=== PATIENT | male | born 1995 | race Caucasian/White ===

== ENCOUNTER → 2016-12-02 | Outpatient (CLI) | payer OTHER, SELFPAY ==
[2016-12-02 18:52] LABS: ALBUMIN 4.3 GM/DL (3.2-5.2); ALBUMIN/GLOBULIN RATIO 1.19 (1.00-1.93); ALKALINE PHOSPHATASE 71 U/L (45-117); ALT/SGPT 24 U/L (12-78); ANION GAP 9 MEQ/L (8-16); AST/SGOT 21 U/L (15-37); BILIRUBIN,TOTAL 0.5 MG/DL (0.2-1.0); BLOOD UREA NITROGEN 14 MG/DL (7-18); CALCIUM LEVEL 9.1 MG/DL (8.5-10.1); CARBON DIOXIDE LEVEL 28 MEQ/L (21-32); CHLORIDE LEVEL 105 MEQ/L (98-107); CREATININE FOR GFR 0.87 MG/DL (0.70-1.30); GLOMERULAR FILTRATION RATE > 60.0 (>60); GLUCOSE, FASTING 81 MG/DL (70-105); POTASSIUM SERUM 4.6 MEQ/L (3.5-5.1); SODIUM LEVEL 142 MEQ/L (136-145); TOTAL PROTEIN 7.9 GM/DL (6.4-8.2)
[2016-12-02 18:53] LABS: BASO % 0.4 % (0.0-1.0); EOS # 0.3 K/mm3 (0.0-0.50); EOS % 4.1 % (0.0-3.0); LARGE UNSTAINED CELL # 0.2 K/mm3 (0.0-0.4); LARGE UNSTAINED CELL % 2.3 % (0.0-4.0); LYMPH # 2.6 K/mm3 (1.5-6.5); LYMPH % 31.4 % (24.0-44.0); MEAN CORPUSCULAR HGB CONC 35.3 g/dl (32.0-36.5); MEAN CORPUSCULAR VOLUME 82.2 fl (80.0-96.0); MONO # 0.5 K/mm3 (0.0-0.8); MONO % 5.7 % (0.0-5.0); NEUTROPHILS # 4.6 K/mm3 (1.8-7.7); NEUTROPHILS % 56.1 % (36.0-66.0); PLATELET COUNT, AUTOMATED 282 k/mm3 (150-450); RED CELL DISTRIBUTION WIDTH 13.5 % (11.5-14.5); WHITE BLOOD COUNT 8.2 K/mm3 (4.0-10.0)
[2016-12-03 14:16] LABS: HIV SCRN NEGATIVE (NEGATIVE); HIV SCRN1 NEGATIVE (NEGATIVE)
[2016-12-03 14:18] LABS: CONTROL LINE INT CTR LINE PRESENT
== END | disposition home or self-care (01) ==
LOC: M LAB 15:39
PROVIDERS: ATTEND Family Medicine
DX: F11.20 Opioid dependence, uncomplicated (principal)

== ENCOUNTER 2017-07-25 12:24 | Inpatient (IN) | payer OTHER, SELFPAY ==
[~2017-07-25] VITALS: Ht 182.9 cm; Wt 130.0 kg
[2017-07-25] MEDS ORDERED: ONDANSETRON 4MG/2ML VIAL (J2405) IV ONE (13:00)
[2017-07-25] MEDS ORDERED: NS 1,000 ML IV ONE (13:00)
[2017-07-25 13:08] LABS: BASO # 0.1 K/mm3 (0.0-0.2); BASO % 1.2 % (0.0-1.0); EOS # 0.4 K/mm3 (0.0-0.50); EOS % 3.8 % (0.0-3.0); LARGE UNSTAINED CELL # 0.4 K/mm3 (0.0-0.4); LARGE UNSTAINED CELL % 3.8 % (0.0-4.0); LYMPH # 4.3 K/mm3 (1.5-6.5); LYMPH % 34.5 % (24.0-44.0); MEAN CORPUSCULAR HEMOGLOBIN 30.2 pg (27.0-33.0); MEAN CORPUSCULAR HGB CONC 35.3 g/dl (32.0-36.5); MEAN CORPUSCULAR VOLUME 85.5 fl (80.0-96.0); MONO % 9.1 % (0.0-5.0); NEUTROPHILS # 5.4 K/mm3 (1.8-7.7); NEUTROPHILS % 47.7 % (36.0-66.0); PLATELET COUNT, AUTOMATED 229 k/mm3 (150-450); RED CELL DISTRIBUTION WIDTH 13.2 % (11.5-14.5); WHITE BLOOD COUNT 11.3 K/mm3 (4.0-10.0)
[2017-07-25] MEDS ORDERED: METH10CO PO (13:09)
[2017-07-25 13:13] LABS: INR 1.12
[2017-07-25 13:30] LABS: CONTROL LINE MONO INT CTR LINE PRESENT
[2017-07-25] MEDS ORDERED: NS 1,000 ML IV SCH ×4 (13:30→20:32)
[2017-07-25 13:38] LABS: ALBUMIN 3.1 GM/DL (3.2-5.2); ALBUMIN/GLOBULIN RATIO 0.91 (1.00-1.93); ALKALINE PHOSPHATASE 235 U/L (45-117); ALT/SGPT 1181 U/L (12-78); AMYLASE 20 U/L (25-115); ANION GAP 11 MEQ/L (8-16); AST/SGOT 906 U/L (15-37); BILIRUBIN,TOTAL 2.8 MG/DL (0.2-1.0); BLOOD UREA NITROGEN 23 MG/DL (7-18); CALCIUM LEVEL 8.3 MG/DL (8.5-10.1); CARBON DIOXIDE LEVEL 25 MEQ/L (21-32); CHLORIDE LEVEL 106 MEQ/L (98-107); CREATININE FOR GFR 0.94 MG/DL (0.70-1.30); GLOMERULAR FILTRATION RATE > 60.0 (>60); GLUCOSE, FASTING 126 MG/DL (70-105); POTASSIUM SERUM 4.1 MEQ/L (3.5-5.1); SODIUM LEVEL 142 MEQ/L (136-145); TOTAL PROTEIN 6.5 GM/DL (6.4-8.2)
[2017-07-25] MEDS ORDERED: GABA-282 PO (15:08)
[2017-07-25] MEDS ORDERED: IBUP1TAB6 PO (15:08)
[2017-07-25] MEDS ORDERED: RANI1TAB6 PO (15:08)
[2017-07-25] MEDS ORDERED: METH40TA PO (15:08)
[2017-07-25] MEDS ORDERED: SODIUM CHLORIDE 0.9% 1000 ML IV ONE (15:15)
[2017-07-25] MEDS ORDERED: ONDANSETRON 4MG/2ML VIAL (J2405) IV PRN (15:15)
[2017-07-25] MEDS ORDERED: ONDANSETRON 4 MG TAB (S0181) PO PRN (15:15)
[2017-07-25] MEDS ORDERED: PANTOPRAZOLE 40MG INJ (PROTONIX) (C9113) IV ONE (15:45)
--- NOTE | 2017-07-25 16:21 | REP ---
CT Head without contrast HISTORY: Fall COMPARISON: None There is no intraparenchymal hemorrhage, acute infarct, mass or midline shift. The ventricular system is normal in appearance. There is no extra cerebral collection. There is no fracture. The visualized sinuses are clear. IMPRESSION: There is no intracranial lesion. Signed by Will Mott MD 07/25/2017 04:13 P
[2017-07-25 16:43] LABS: METHADONE URINE POSITIVE (NEGATIVE)
--- NOTE | 2017-07-25 18:18 | HPEPDOC ---
Medical History and Physical Date of Admission Jul 25, 2017 at 15:08 History and Physical HISTORY AND PHYSICAL Date of admission: 07/25/2017 PCP: None Chief complaint: Bloody bowel movement HPI: 22-year-old male with history of IV heroin use, currently sober for 2 years and attending methadone clinic, history of likely hepatitis C, who presented to the emergency department with a bloody bowel movement. He states that approximately 3 days ago, he began having diffuse muscle cramps, lots of fatigue, and headaches. He also endorses lots of nausea, but no vomiting. He states that earlier today, he thought he was going to vomit, but when he got to the bathroom, he had an intense urge to have a bowel movement. At that point, he appears to have passed out, and fell on the floor. He states that he definitely lost consciousness, but he is unclear if he hit his head or not. His sister states that she heard him fall, and when she went into the bathroom, he was on the floor, and the entire toilet was full of blood clots. The patient denies any prior episodes similar to this, but he does state that approximately one month ago, he saw a little bit of streaks of blood in his stool. He has never had any EGD or colonoscopy in the past. He denies any Tylenol use, but does report fairly regular ibuprofen use for several years now. He denies any alcohol ingestion approximately 6 years. He also denies any recent tattoos. Past medical history: History of IV heroin use, currently sober for 2 years and attending methadone clinic, history of likely hepatitis C, history of mononucleosis approximately 3-4 years ago Past surgical history: None Family history: Diabetes mellitus, end-stage renal disease, hypertension, hepatitis C Social history: The patient is not currently working or in school. He smokes approximately one pack of cigarettes a day, and states that he has not had any alcohol since he was approximately 16 years old. He endorses a history of IV heroin use, but states he has been clean for approximately 2 years and is currently attending a methadone clinic. Allergies: No known drug allergies Review of systems: General: Positive for subjective fever and chills Eyes: Negative for vision changes and ocular discharge ENT: Positive for sore throat, negative for nose bleed Cardiovascular: Negative for chest pain and palpitations Respiratory: Negative for cough, positive for shortness of breath and wheezing GI: Positive for nausea and constipation, negative for vomiting and diarrhea Musculoskeletal: Positive for lower back pain Skin: Positive for chronic rash on his chest Neuro: Positive for headache and dizziness, as well as tingling of his bilateral hands and feet Psych: Negative for depression and suicidal ideation Endocrine: Positive for polyuria : Negative for dysuria Heme: Positive for bloody BM with clots, but no other bleeding Home meds: See below Physical exam: Vital signs: Vital Sign - Last 24 Hours 07/25/17 07/25/17 07/25/17 07/25/17 12:32 12:39 12:53 12:54 Temp 96.4 Pulse 130 133 119 Resp 17 B/P (MAP) 118/67 (84) 101/62 (75) Pulse Ox 96 97 96 O2 Delivery Room Air 07/25/17 07/25/17 07/25/17 07/25/17 13:00 13:03 13:09 13:11 Temp 96.4 Pulse 130 118 Resp 17 B/P (MAP) 101/62 (75) 118/67 (84) Pulse Ox 96 96 O2 Delivery Room Air 07/25/17 07/25/17 07/25/17 07/25/17 13:15 13:24 13:30 13:39 Pulse 110 104 B/P (MAP) 92/56 (68) 92/52 (65) Pulse Ox 95 97 07/25/17 07/25/17 07/25/17 07/25/17 13:45 13:51 13:53 13:54 Pulse 134 B/P (MAP) 109/71 (84) 112/70 (84) 101/58 (72) Pulse Ox 99 07/25/17 07/25/17 07/25/17 07/25/17 14:00 14:09 14:24 14:26 Pulse 100 105 B/P (MAP) 111/72 (85) 131/74 (93) Pulse Ox 100 100 07/25/17 07/25/17 07/25/17 07/25/17 14:30 14:39 14:45 14:54 Pulse 105 B/P (MAP) 123/74 (90) 132/76 (94) Pulse Ox 99 100 07/25/17 07/25/17 07/25/17 07/25/17 15:00 15:09 15:24 15:38 B/P (MAP) 132/75 (94) 126/73 (90) Pulse Ox 100 100 07/25/17 07/25/17 07/25/17 07/25/17 15:39 15:54 16:08 16:09 Pulse 120 134 B/P (MAP) 109/59 (76) Pulse Ox 98 99 97 07/25/17 07/25/17 07/25/17 07/25/17 16:23 16:24 16:39 16:53 Pulse 122 124 B/P (MAP) 114/63 (80) 108/65 (79) Pulse Ox 96 96 07/25/17 07/25/17 07/25/17 07/25/17 16:54 17:08 17:09 17:24 Pulse 129 119 123 B/P (MAP) 119/58 (78) Pulse Ox 88 97 99 07/25/17 07/25/17 17:39 17:47 Temp 96.6 Pulse 125 125 Resp 58 B/P (MAP) 126/67 (86) Pulse Ox 97 96 Gen.: awake, alert, no acute distress, pale Eyes: Extraocular movements intact, normal sclera ENT: Moist mucous membranes Cardiovascular: Regular rhythm but mildly tachycardic, no murmurs rubs or gallops Lungs: clear to auscultation bilaterally, no rales, rhonchi, or wheeze Abdomen: Soft, nondistended, tenderness to palpation in the left lower quadrant , decreased BS Musculoskeletal: normal range of motion Extremities: No peripheral edema Neuro: alert and oriented 3, normal speech, no focal deficits Psych: Normal mood with congruent affect Labs and radiology: See below BUN 23 Hemoglobin 13.3 WBC 11.3 Lactate 2.9 Troponin negative Lipase unremarkable Blood cultures pending Abdominal ultrasound: Wet read shows a thickened gallbladder wall but no evidence of stones, final read pending Tylenol and aspirin levels are undetectable T bili 2.8, direct bili 2.0, AST 906, ALT 1181, alkaline phosphatase 235 Coags unremarkable Assessment and plan: 22-year-old male with history of IV heroin use, currently sober for 2 years and attending methadone clinic, history of likely hepatitis C, who presented to the emergency department with a bloody bowel movement. He is admitted with a GI bleed, as well as acute transaminitis. 1. GI bleed: The patient experienced a bloody bowel movement with clots this morning at home, and was grossly guaiac-positive in the emergency department. Etiology is unclear at this point, although the patient does endorse regular ibuprofen use for several years. At this time, we will keep him nothing by mouth with a PPI drip and IV fluids. We have consulted Dr. Whitman for evaluation of possible scopes, and we greatly appreciate his help. We will transfuse as necessary, but hemoglobin at this time is above 13. We will trend serial hemoglobins. 2. Loss of consciousness: This is most likely secondary to the sudden, bloody bowel movement that the patient experienced. He says that he is unclear if he hit his head. We will evaluate with a CT of the head, but at this point he is mentating well. 3. Acute transaminitis: The patient denies any recent alcohol intake, or Tylenol ingestion. He does report that the doctor at the methadone clinic told him that his liver tests were a little elevated, but he did not think he needed to be evaluated for hep C treatment at this time. In November of this year, his hepatitis C antibody was positive, however, hepatitis C RNA was negative. Given his IV drug use, we will check an acute hepatitis panel. We will also follow up the final read of the abdominal ultrasound; the wet read showed only a thickened gallbladder wall but no evidence of stones. We will continue to trend his LFTs. If he does not have much improvement by tomorrow, he may benefit from a GI consultation with Dr. Canales who is available this weekend. We will of course hold any hepatotoxic drugs. At this time, his coags are relatively unremarkable. 4. History of IV heroin use, currently sober for 2 years and attending methadone clinic: We will continue the patient on his home methadone. DVT prophylaxis: SCDs Dispo: admit as an inpatient to the ICU on the service of Dr. Chatman; the patient 's status is very guarded given his acute transaminitis and GI bleed CODE STATUS: Full code Vital Signs Vital Signs Date Time Temp Pulse Resp B/P (MAP) Pulse Ox O2 Delivery O2 Flow Rate FiO2 07/25/17 17:47 96.6 125 58 126/67 (86) 96 07/25/17 13:03 Room Air Laboratory Data Labs 24H Laboratory Tests 2 07/25/17 12:48: White Blood Count 11.3H, Red Blood Count 4.41, Hemoglobin 13.3L, Hematocrit 37.7L, Mean Corpuscular Volume 85.5, Mean Corpuscular Hemoglobin 30.2, Mean Corpuscular Hemoglobin Concent 35.3, Red Cell Distribution Width 13.2, Platelet Count 229, Neutrophils (%) (Auto) 47.7, Lymphocytes (%) (Auto) 34.5, Monocytes ( %) (Auto) 9.1H, Eosinophils (%) (Auto) 3.8H, Basophils (%) (Auto) 1.2H, Neutrophils # (Auto) 5.4, Lymphocytes # (Auto) 4.3, Monocytes # (Auto) 1.0H, Eosinophils # (Auto) 0.4, Basophils # (Auto) 0.1, Large Unclassified Cells % 3.8 , Large Unclassified Cells # 0.4, Prothrombin Time 14.6H, Prothromb Time International Ratio 1.12, Activated Partial Thromboplast Time 31.5, Anion Gap 11 , Glomerular Filtration Rate > 60.0, Lactic Acid Level 2.9*H, Calcium Level 8.3L , Aspartate Amino Transf (AST/SGOT) 906H, Alanine Aminotransferase (ALT/SGPT) 1181H, Alkaline Phosphatase 235H, Total Bilirubin 2.8H, Direct Bilirubin 2.0H, Total Creatine Kinase 31L, Creatine Kinase MB 1.0, Creatine Kinase MB Relative Index 3.22, Troponin I < 0.02, Total Protein 6.5, Albumin 3.1L, Albumin/ Globulin Ratio 0.91L, Amylase Level 20L, Lipase 43L, Salicylates Level < 1.7L, Acetaminophen Level < 2.0L, Monoscreen NEGATIVE 07/25/17 16:06: Urine Appearance CLEAR, Urine Color CHRISTINA, Urine pH 6.0, Urine Specific [place] 1.025, Urine Protein 1+H, Urine Glucose (UA) NEGATIVE, Urine Ketones NEGATIVE, Urine Urobilinogen 4.0H, Urine Bilirubin NEGATIVE, Urine Leukocyte Esterase NEGATIVE, Urine Blood NEGATIVE, Urine Nitrite NEGATIVE, Urine WBC (Auto) 1, Urine RBC (Auto) 5H, Urine Hyaline Casts (Auto) 1, Urine Bacteria (Auto) NEGATIVE, Urine Squamous Epithelial Cells 0, Urine Mucus (Auto) SMALL, Urine Sperm (Auto) , Urine Amphetamines Screen NEGATIVE, Urine Benzodiazepines Screen NEGATIVE, Urine Opiates Screen NEGATIVE, Urine Methadone Screen POSITIVEH, Urine Barbiturates Screen NEGATIVE, Urine Phencyclidine Screen NEGATIVE, Urine Cocaine Metabolite Screen NEGATIVE, Urine Cannabinoids Screen NEGATIVE 07/25/17 17:42: CBC/BMP Laboratory Tests 07/25/17 12:48 Red Blood Count 4.41, Mean Corpuscular Volume 85.5, Mean Corpuscular Hemoglobin 30.2, Mean Corpuscular Hemoglobin Concent 35.3, Red Cell Distribution Width 13.2 , Neutrophils (%) (Auto) 47.7, Lymphocytes (%) (Auto) 34.5, Monocytes (%) (Auto ) 9.1 H, Eosinophils (%) (Auto) 3.8 H, Basophils (%) (Auto) 1.2 H, Neutrophils # (Auto) 5.4, Lymphocytes # (Auto) 4.3, Monocytes # (Auto) 1.0 H, Eosinophils # (Auto) 0.4, Basophils # (Auto) 0.1 Microbiology Microbiology 07/25/17 Blood Culture, Received Pending 07/25/17 Blood Culture, Received Pending 07/25/17 Gastrointestinal Tract Panel (PCR), Received Pending Home Medications Scheduled Gabapentin (Gabapentin) 300 Mg Cap, 300 MG PO TID Methadone HCl (Methadone HCl) 40 Mg Tab, 40 MG PO DAILY PT RECEIVES AT [facility], UNABLE TO VERIFY DOSE THE CENTER IS CLOSED TODAY Scheduled PRN Ibuprofen (Ibuprofen) 600 Mg Tab, 600 MG PO Q8H PRN for HEADACHE Ranitidine HCl (Ranitidine [address]) 150 Mg Tab, 1 TAB PO DAILY PRN for HEARTBURN Allergies Coded Allergies: No Known Allergies (Unverified , 07/17/16) PAPO RIBERA Jul 25, 2017 18:18
[2017-07-25] MEDS: PANTOPRAZOLE SODIUM 40 MG in D5W MINI-BAG PLUS 50 ML IV SCH ×2 (18:23→21:00)
[2017-07-25 20:07] VITALS: BP 92/51
[2017-07-25 21:30] VITALS: BP 75/45
--- NOTE | 2017-07-25 21:41 | CR ---
DATE OF CONSULTATION: 07/25/2017 REASON FOR CONSULTATION: Rectal bleeding. HISTORY OF PRESENT ILLNESS: The patient is a 22-year-old man admitted by the hospitalist service for treatment of a rectal bleed. The patient has a history of intravenous (IV) heroin use, according to his chart, but reports being abstinent for the last two years. He is currently being treated through a methadone clinic. He apparently has had a history of possible hepatitis C. The patient has had some nausea and abdominal pain recently. There is a history that he has been using some nonsteroidal anti-inflammatory in the form of ibuprofen for discomfort. On the morning of 07/25, he felt nauseous but went to the bathroom and had a strong urge to have a bowel movement. He apparently had passed out at home and fell on the floor and his family member who found him identified blood with clots in the toilet. The patient has not had any prior history of rectal bleeding. He denies any history of peptic ulcer disease. He presented to the emergency department where he was found to have a hemoglobin of 13 with a hematocrit of 38. He was admitted to the intensive care unit for monitoring. He has been tachycardiac during much of his stay in the 120 to 130 range. He has had perhaps two more passages of blood and clots which is described as being mckenzie in color and not bright red. His blood pressure has gotten a little soft and a repeat chemistry at 8 p.m. showed a hemoglobin now of nine with a hematocrit of 27, representing a 10-point drop in his hematocrit. I have been requested to evaluate the patient for possible endoscopy. ALLERGIES: The patient has no documented drug allergies. HOME MEDICATIONS. He has been taking gabapentin 300 mg by mouth three times daily and some methadone daily as well. He has been taking some ibuprofen and some as needed [id number] ranitidine for heartburn. PAST SURGICAL HISTORY: The patient has had no surgery. MEDICAL HISTORY: Significant for his prior use of heroin and his current methadone maintenance. He has a history reported as likely hepatitis C. SOCIAL HISTORY: The patient is currently not working or in school. He apparently smokes daily. He denies any alcohol use. REVIEW OF SYSTEMS: Reveals no cardiac or respiratory problems. He does have a history of lower abdominal discomfort on and off for some time, but this is hard to characterize. There is no history of dysuria or hematuria. As noted prior, he has no history of previous bleeding. PHYSICAL EXAMINATION: Reveals a moderately obese young man who is somewhat somnolent at this point. Skin is perhaps somewhat pale but dry and warm. Sclerae are anicteric. Heart exam shows a regular tachycardia at approximately 125. The lungs are clear to auscultation. The abdomen is obese, soft, and without definite tenderness. Extremities are without definite edema. LABORATORY DATA: As noted, hemoglobin and hematocrit at 1999 on 07/25 is 9.2 and 27 which represents a significant drop in the previous seven hours. His blood chemistries from early in the day showed elevation of his liver function tests with total bilirubin of 2.8, direct of 2.0, AST 906, ALT 1181 and alkaline phosphatase of 235. Amylase and lipase were normal. Total protein is 6.5 with an albumin of 3.1. His electrolytes were normal with BUN of 23 and creatinine of 0.9. His PT/INR and PTT were normal. Imaging studies today showed a head CT that showed no evidence of intracranial injury. This was done because of his history of passing out at home. His abdominal ultrasound from today showed a thickened gallbladder wall but no definite gallstones. IMPRESSION: 1. Rectal bleeding of unclear etiology. There are multiple possibilities for bleeding. Given his age, colon polyps and cancer and diverticulosis would I think be somewhat less likely. Certainly this could represent an upper gastrointestinal (GI) bleed from gastritis or ulcer disease. He does have a history of probable hepatitis C so it is possible that he could have esophageal varices, but based on the imaging of several CT scans over the last few years, I think this is unlikely as I do not see any abnormal vessels in the upper abdomen. With his history of nonsteroidal anti-inflammatory use, I think perhaps the upper GI source is most likely. A recent CT scan from June of this year did show some larger boluses of stool within the colon and I suppose that a stercal ulcer would be another potential source for bleeding. He could also have a Meckel's diverticulum as the source for bleeding. 2. Possible hepatitis C infection. 3. Elevated liver function tests of uncertain etiology and significance. PLAN: The patient was counseled for upper GI endoscopy. He has not had any bowel preparation at this point so a colonoscopy would not be useful. He is due to have some blood transfused and once this is started, I think we should proceed with the upper endoscopy to see if we can identify a possible source. If there is active bleeding, then hopefully we can stop this, and if there is no bleeding evident, we will need to consider additional testing to identify other possible sources. The patient was counseled and desires to proceed. MILAGRO
[2017-07-25 21:46] VITALS: BP 83/54
[2017-07-25 22:00] VITALS: BP 76/48
[2017-07-25] MEDS ORDERED: SUCCINYLCHOLINE 100 MG/5 ML SYRINGE (J0330) As Ordered ONE (22:45)
[2017-07-25] MEDS ORDERED: MIDAZOLAM INJ 2 MG/2 ML VIAL (J2250) As Ordered ONE (22:45)
[2017-07-25] MEDS ORDERED: PROPOFOL 200 MG/20 ML VIAL As Ordered ONE (22:45)
[2017-07-25] MEDS ORDERED: ETOMIDATE INJ 20MG/10ML VIAL As Ordered ONE (22:45)
[2017-07-25] MEDS ORDERED: LIDOCAINE 2% INJ 100 MG/5 ML SYRINGE As Ordered ONE (22:45)
[2017-07-25] MEDS ORDERED: EPINEPHrine 1MG/10ML SYRINGE 1.5IN As Ordered ONE (23:04)
[2017-07-26] VITALS (16 sets, daily range): BP systolic 85–133; BP diastolic 48–68
[2017-07-26] MEDS ORDERED: NS 1,000 ML IV SCH (00:30)
[2017-07-26] MEDS: PANTOPRAZOLE SODIUM 40 MG in D5W MINI-BAG PLUS 50 ML IV SCH ×5 (03:00→22:52)
[2017-07-26 06:03] LABS: BASO % 0.5 % (0.0-1.0); EOS % 0.5 % (0.0-3.0); LARGE UNSTAINED CELL # 0.4 K/mm3 (0.0-0.4); LARGE UNSTAINED CELL % 3.9 % (0.0-4.0); LYMPH # 5.3 K/mm3 (1.5-6.5); MEAN CORPUSCULAR HEMOGLOBIN 30.9 pg (27.0-33.0); MEAN CORPUSCULAR HGB CONC 34.9 g/dl (32.0-36.5); MEAN CORPUSCULAR VOLUME 88.6 fl (80.0-96.0); MONO # 0.6 K/mm3 (0.0-0.8); MONO % 5.4 % (0.0-5.0); NEUTROPHILS # 4.2 K/mm3 (1.8-7.7); NEUTROPHILS % 41.7 % (36.0-66.0); PLATELET COUNT, AUTOMATED 155 k/mm3 (150-450); RED CELL DISTRIBUTION WIDTH 13.7 % (11.5-14.5); WHITE BLOOD COUNT 10.1 K/mm3 (4.0-10.0)
[2017-07-26 06:10] LABS: INR 1.15
[2017-07-26 06:33] LABS: ALBUMIN 2.5 GM/DL (3.2-5.2); ALBUMIN/GLOBULIN RATIO 0.96 (1.00-1.93); ALKALINE PHOSPHATASE 153 U/L (45-117); ALT/SGPT 928 U/L (12-78); ANION GAP 11 MEQ/L (8-16); AST/SGOT 553 U/L (15-37); BLOOD UREA NITROGEN 31 MG/DL (7-18); CALCIUM LEVEL 7.4 MG/DL (8.5-10.1); CARBON DIOXIDE LEVEL 23 MEQ/L (21-32); CHLORIDE LEVEL 112 MEQ/L (98-107); CREATININE FOR GFR 1.01 MG/DL (0.70-1.30); GLOMERULAR FILTRATION RATE > 60.0 (>60); GLUCOSE, FASTING 125 MG/DL (70-105); MAGNESIUM LEVEL 1.8 MG/DL (1.8-2.4); POTASSIUM SERUM 4.7 MEQ/L (3.5-5.1); SODIUM LEVEL 146 MEQ/L (136-145); TOTAL PROTEIN 5.1 GM/DL (6.4-8.2)
--- NOTE | 2017-07-26 07:36 | REP ---
LIMITED ABDOMEN ULTRASOUND: HISTORY: Transaminitis. COMPARISON: 04/04/2012. There are no filling defects in the gallbladder. The gallbladder wall is thickened measuring 10 mm. The common bile duct measures 3.9 cm. There is no free fluid. The liver is normal in echogenicity. The pancreas is not seen due to overlying bowel gas. The right kidney measures 5 cm in transverse by 4.6 cm in AP by 11.3 cm in cephalocaudal dimensions. There is no hydronephrosis or mass. IMPRESSION: Thickened gallbladder wall. There is no cholelithiasis. Signed by Will Mott MD 07/26/2017 07:47 A
--- NOTE | 2017-07-26 07:50 | ECGEPIP ---
Stationary ECG Study [facility] Test Date: 2017-07-26 Pat Name: KATERYNA JACKSON Department: [facility] Room: [place] [address] Gender: M Copy Chief: FESTUS : 1995 Requested By: GLORIA LIM Order Number: [id number] Reading MD: Jaycee Cruz Measurements Intervals [place] Rate: 103 P: 66 [place]: 121 QRS: 95 QRSD: 89 T: 28 QT: 308 QTc: 404 Interpretive Statements SINUS TACHYCARDIA BORDERLINE RIGHT AXIS DEVIATION NO PRIOR Electronically Signed On 07-26-2017 7:49:43 EDT by Jaycee Cruz
--- NOTE | 2017-07-26 08:35 | ECGEPIP ---
Stationary ECG Study [facility] - ED Test Date: 2017-07-25 Pat Name: KATERYNA JACKSON Department: Room: [place] [address] Gender: M Material Clerk: PERI : 1995 Requested By: KAYLIE GODOY Order Number: [id number] Reading MD: Katya Frias Measurements Intervals [place] Rate: 118 P: 46 [place]: 122 QRS: 108 QRSD: 90 T: 21 QT: 311 QTc: 437 Interpretive Statements SINUS TACHYCARDIA MARKED RIGHT AXIS DEVIATION Electronically Signed On 07-26-2017 8:35:46 EDT by Katya Frias
[2017-07-26] MEDS: METHADONE 10 MG TAB (S0109) PO SCH (08:38)
--- NOTE | 2017-07-26 14:10 | IPNPDOC ---
Subjective Date Seen The patient was seen on 07/26/17. Subjective Chief Complaint/HPI Patient seen and examined at the bedside this morning. States that his abdominal discomfort is significantly improved compared to yesterday. Denies any more bloody bowel movements. Does not endorse any other acute complaints at this time. Objective Physical Examination General Exam: Positive: Alert, Cooperative, No Acute Distress ENT Exam: Positive: Atraumatic, Mucous membr. moist/pink Neck Exam: Negative: JVD Chest Exam: Positive: Clear to auscultation, Normal air movement Heart Exam: Positive: Rate Normal, Normal S1, Normal S2 Telemetry: Positive: Sinus Abdomen Exam: Positive: Soft, Tenderness (Mild tenderness to deep palpation in the lower quadrants bilaterally. No rigidity, rebound tenderness, or guarding) Extremity Exam: Negative: Tenderness, Swelling Psych Exam: Positive: Oriented x 3 Assessment /Plan Plan/VTE VTE Prophylaxis Ordered?: Yes Plan Acute Upper GI Bleed s/p EGD Patient apparently was found to have a bleeding ulcer that was clipped/ cauterized--official surgical report pending Hgb and blood pressure stable since intervention, s/p 2 Units of PRBC's over night We will continue to serially monitor H&H levels Cont IV Protonix, Carafate added Diet advanced to Clear Liquids as per Surgery We will cont to monitor the patient's progress Elevated Troponin 2/2 Acute Blood Loss from GI Bleed Troponin has peaked at 1.06 this AM--patient without any acute complaints of chest pain, palpitations, SOB We will cont to monitor the patient at this time Lactic Acidosis 2/2 Above, resolved s/p IVF Hydration Acute Transaminitis likely 2/2 Above AST/ALT trending downward this morning PT/INR remain within relative normal limits Patient does have a history of hepatitis C antibody in November 2016 Hepatitis C RNA done at the time was negative. 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 EKG reviewed--no QT prolongation noted We will continue the patient on methadone. DVT prophylaxis: SCDs VS, I&O, 24H, Fishbone Vital Signs/I&O Vital Signs Date Time Temp Pulse Resp B/P (MAP) Pulse Ox O2 Delivery O2 Flow Rate FiO2 07/26/17 08:38 18 8/27/17 08:00 97.8 100 106/60 (75) 98 Room Air I&O- Last 24 Hours up to 6 AM 07/26/17 06:00 Intake Total 5284 ml Output Total 910 ml Balance 4374 ml Laboratory Data 24H LABS Laboratory Tests 2 07/25/17 16:06: Urine Appearance CLEAR, Urine Color CHRISTINA, Urine pH 6.0, Urine Specific [place] 1.025, Urine Protein 1+H, Urine Glucose (UA) NEGATIVE, Urine Ketones NEGATIVE, Urine Urobilinogen 4.0H, Urine Bilirubin NEGATIVE, Urine Leukocyte Esterase NEGATIVE, Urine Blood NEGATIVE, Urine Nitrite NEGATIVE, Urine WBC (Auto) 1, Urine RBC (Auto) 5H, Urine Hyaline Casts (Auto) 1, Urine Bacteria (Auto) NEGATIVE, Urine Squamous Epithelial Cells 0, Urine Mucus (Auto) SMALL, Urine Sperm (Auto) , Urine Amphetamines Screen NEGATIVE, Urine Benzodiazepines Screen NEGATIVE, Urine Opiates Screen NEGATIVE, Urine Methadone Screen POSITIVEH, Urine Barbiturates Screen NEGATIVE, Urine Phencyclidine Screen NEGATIVE, Urine Cocaine Metabolite Screen NEGATIVE, Urine Cannabinoids Screen NEGATIVE 07/25/17 17:42: Lactic Acid Followup at 4 Hours 3.1*H, Total Creatine Kinase 48, Creatine Kinase MB 1.0, Creatine Kinase MB Relative Index 2.08, Troponin I 0.02 07/25/17 20:08: Lactic Acid Level 4.8*H 07/26/17 00:40: Lactic Acid Followup at 4 Hours 3.4*H, Total Creatine Kinase 123#, Creatine Kinase MB 3.4, Creatine Kinase MB Relative Index 2.76, Troponin I 0.46#H 07/26/17 05:52: White Blood Count 10.1H, Red Blood Count 3.25L, Hemoglobin 10.0L, Hematocrit 28.8L, Mean Corpuscular Volume 88.6, Mean Corpuscular Hemoglobin 30.9, Mean Corpuscular Hemoglobin Concent 34.9, Red Cell Distribution Width 13.7, Platelet Count 155, Neutrophils (%) (Auto) 41.7, Lymphocytes (%) (Auto) 48.0H, Monocytes (%) (Auto) 5.4H, Eosinophils (%) (Auto) 0.5, Basophils (%) (Auto) 0.5, Neutrophils # (Auto) 4.2, Lymphocytes # (Auto) 5.3, Monocytes # (Auto) 0.6, Eosinophils # (Auto) 0.0, Basophils # (Auto) 0.0, Large Unclassified Cells % 3.9 , Large Unclassified Cells # 0.4, Prothrombin Time 14.9H, Prothromb Time International Ratio 1.15, Anion Gap 11, Glomerular Filtration Rate > 60.0, Lactic Acid Level 3.1*H, Blood Urea Nitrogen 31H, Creatinine 1.01, Sodium Level 146H, Potassium Level 4.7, Chloride Level 112H, Carbon Dioxide Level 23, Calcium Level 7.4L, Aspartate Amino Transf (AST/SGOT) 553H, Alanine Aminotransferase (ALT/SGPT) 928H, Alkaline Phosphatase 153H, Total Bilirubin 2.0H, Total Protein 5.1#L, Albumin 2.5L, Magnesium Level 1.8, Albumin/Globulin Ratio 0.96L 07/26/17 10:22: Lactic Acid Followup at 4 Hours 1.5, Total Creatine Kinase 236#, Creatine Kinase MB 9.0H, Creatine Kinase MB Relative Index 3.81, Troponin I 1.06#H CBC/BMP Laboratory Tests 07/25/17 20:08 07/26/17 05:52 Red Blood Count 3.25 L, Mean Corpuscular Volume 88.6, Mean Corpuscular Hemoglobin 30.9, Mean Corpuscular Hemoglobin Concent 34.9, Red Cell Distribution Width 13.7, Neutrophils (%) (Auto) 41.7, Lymphocytes (%) (Auto) 48.0 H, Monocytes (%) (Auto) 5.4 H, Eosinophils (%) (Auto) 0.5, Basophils (%) ( Auto) 0.5, Neutrophils # (Auto) 4.2, Lymphocytes # (Auto) 5.3, Monocytes # (Auto ) 0.6, Eosinophils # (Auto) 0.0, Basophils # (Auto) 0.0, Calcium Level 7.4 L, Aspartate Amino Transf (AST/SGOT) 553 H, Alanine Aminotransferase (ALT/SGPT) 928 H, Alkaline Phosphatase 153 H, Total Bilirubin 2.0 H, Total Protein 5.1 #L, Albumin 2.5 L 07/26/17 12:37 Microbiology Microbiology 07/25/17 Blood Culture - Preliminary, Resulted No growth after 24 hours . All specim... 07/25/17 Blood Culture - Preliminary, Resulted No growth after 24 hours . All specim... 07/25/17 Gastrointestinal Tract Panel (PCR) - Final, Complete JOSSELIN KIMBROUGH MD Jul 26, 2017 14:10
[2017-07-26] MEDS ORDERED: CALCIUM GLUCONATE 1,000 MG in D5W MINI-BAG PLUS 100 ML IV ONE (16:00)
[2017-07-26] MEDS: SUCRALFATE 1 GM TAB PO SCH ×2 (18:42→20:35)
[2017-07-27] MEDS: PANTOPRAZOLE SODIUM 40 MG in D5W MINI-BAG PLUS 50 ML IV SCH ×2 (03:56→08:38)
[2017-07-27 06:00] VITALS: BP 130/59
[2017-07-27 06:28] LABS: BASO % 0.5 % (0.0-1.0); EOS # 0.2 K/mm3 (0.0-0.50); EOS % 3.4 % (0.0-3.0); LARGE UNSTAINED CELL # 0.2 K/mm3 (0.0-0.4); LARGE UNSTAINED CELL % 3.4 % (0.0-4.0); LYMPH # 2.9 K/mm3 (1.5-6.5); LYMPH % 45.4 % (24.0-44.0); MEAN CORPUSCULAR HEMOGLOBIN 30.6 pg (27.0-33.0); MEAN CORPUSCULAR VOLUME 87.4 fl (80.0-96.0); MONO # 0.4 K/mm3 (0.0-0.8); MONO % 6.3 % (0.0-5.0); NEUTROPHILS # 2.4 K/mm3 (1.8-7.7); NEUTROPHILS % 40.9 % (36.0-66.0); PLATELET COUNT, AUTOMATED 120 k/mm3 (150-450); RED CELL DISTRIBUTION WIDTH 13.9 % (11.5-14.5); WHITE BLOOD COUNT 5.9 K/mm3 (4.0-10.0)
[2017-07-27 06:46] LABS: ALBUMIN 2.5 GM/DL (3.2-5.2); ALBUMIN/GLOBULIN RATIO 0.93 (1.00-1.93); ALKALINE PHOSPHATASE 124 U/L (45-117); ALT/SGPT 855 U/L (12-78); ANION GAP 6 MEQ/L (8-16); AST/SGOT 563 U/L (15-37); BILIRUBIN,TOTAL 1.3 MG/DL (0.2-1.0); BLOOD UREA NITROGEN 14 MG/DL (7-18); CALCIUM LEVEL 7.8 MG/DL (8.5-10.1); CARBON DIOXIDE LEVEL 28 MEQ/L (21-32); CHLORIDE LEVEL 105 MEQ/L (98-107); CREATININE FOR GFR 0.73 MG/DL (0.70-1.30); GLOMERULAR FILTRATION RATE > 60.0 (>60); GLUCOSE, FASTING 103 MG/DL (70-105); MAGNESIUM LEVEL 1.7 MG/DL (1.8-2.4); POTASSIUM SERUM 3.8 MEQ/L (3.5-5.1); SODIUM LEVEL 139 MEQ/L (136-145); TOTAL PROTEIN 5.2 GM/DL (6.4-8.2)
[2017-07-27 06:54] LABS: INR 1.03
[2017-07-27] MEDS: MAG SULF 1GM/100ML (MAG RUN) 1 GM in APPROPRIATE DILUENT 1 EA IV SCH ×2 (08:39→08:40)
[2017-07-27] MEDS: METHADONE 10 MG TAB (S0109) PO SCH (08:39)
[2017-07-27] MEDS: SUCRALFATE 1 GM TAB PO SCH ×4 (08:40→22:23)
--- NOTE | 2017-07-27 09:47 | RO ---
DATE OF PROCEDURE: 07/26/2017 PREOPERATIVE DIAGNOSIS: Gastrointestinal bleeding. POSTOPERATIVE DIAGNOSIS: Upper gastrointestinal (GI) bleed secondary to pyloric channel ulcer with visible vessel. PROCEDURE PERFORMED: Esophagogastroduodenoscopy with control of bleeding consisting of: 1. Injection of several small aliquots of 1:10,000 epinephrine solution. 2. Application of hemostatic clips to the area of the visible vessel. 3. Heater probe cautery of the ulcer base. SURGEON: Dr. Cristian Rosario ANESTHESIA: General. INDICATIONS FOR PROCEDURE: The patient is a 22-year-old man who had passed a large amount of blood and clots in the toilet at home and then suffered a syncopal episode. He was brought to the emergency department. He was admitted and later in the day was noted to be more tachycardiac with passage of some additional blood and clots. His hematocrit had dropped significantly on repeat testing. I was consulted and he is now for an upper endoscopy. OPERATIVE PROCEDURE: The patient was taken to the operating room where he was placed under general endotracheal anesthesia. The adult video endoscope was then inserted into the mouth and advanced down the esophagus. There was no sign of esophageal varices. In the distal esophagus, he had a few small fragments of clot noted, but there was no ulceration or erosion and no bleeding. The scope was advanced into the stomach. There was some primarily lightly watery, bilious fluid within the stomach, but also a few flecks of old clot noted here and there on the wall of the stomach. The scope was advanced through the pylorus and then down to the second portion of the duodenum. The duodenum also contained a few flecks of old blood, but no fresh blood. The first and second portions of the duodenum really looked normal. As the scope was withdrawn through what appeared to be the pyloric channel, an acute ulcer about a centimeter in size or perhaps even slightly smaller was noted along the wall of the channel at a point of angulation of the channel. As this was better inspected, there was a large appearing visible vessel with some adherent clot at the distal end of the ulcer. There was no active bleeding identified. Interestingly, the ampulla draining some bile was noted only several centimeters distal to this point in the wall of the duodenum. Initially, several 1/2 mL aliquots of 1:10,000 epinephrine solution were infiltrated around the ulcer. I then elected to attempt placement of a hemostatic clip. One clip was placed which appeared to nicely encompass the distal edge of the ulcer and appeared to compress the area of the visible vessel. The second clip was placed just proximal to this. I attempted to place one more additional clip, but I could not gain purchase on the inflamed tissues of the ulcer bed. I made one further attempt at placing a clip more proximally. In the course of doing so, I apparently dislodged one of the previous clips, leaving one clip in place at the distal end of the ulcer, but well positioned to control the visible vessel. There were a few small raw spots identified on the ulcer bed and these were cauterized with the heater probe. Final inspection and irrigation was performed. There was no active bleeding seen. The scope was withdrawn into the stomach and a more thorough examination of the stomach showed no evidence of ulcer or erosion. The scope was gradually withdrawn through the esophagus and the esophagus otherwise appeared normal. There were some photographs obtained which were secured within the [employer] system. The patient tolerated the procedure well without apparent complication. He was awakened in the operating room, extubated and moved to the recovery room in stable condition. MILAGRO
--- NOTE | 2017-07-27 12:44 | IPNPDOC ---
Subjective Date Seen The patient was seen on 07/27/17. Subjective Chief Complaint/HPI Patient seen and examined at the bedside this morning. States that he has not noticed any blood in his stools over the last 24 hours. However, patient's significant other does note that she saw some dark colored streaks when helping the patient cleanup in the bathroom. Patient reports that he does have some generalized fatigue, denies any acute complaints of chest pain, palpitations, or shortness of breath. He reports that his abdominal pain is improving, but does note some cramping in the lower abdominal area. Is tolerating a by mouth liquid diet at this time. Objective Physical Examination General Exam: Positive: Alert, Cooperative, No Acute Distress ENT Exam: Positive: Atraumatic, Mucous membr. moist/pink Neck Exam: Negative: JVD Chest Exam: Positive: Clear to auscultation, Normal air movement Heart Exam: Positive: Rate Normal, Normal S1, Normal S2 Abdomen Exam: Positive: Soft, Tenderness (Mild tenderness to deep palpation in the lower quadrants bilaterally. No rigidity, rebound tenderness, or guarding) Extremity Exam: Negative: Tenderness, Swelling Psych Exam: Positive: Oriented x 3 Assessment /Plan Plan/VTE VTE Prophylaxis Ordered?: Yes Plan Acute Upper GI Bleed s/p EGD Patient apparently was found to have a pyloric channel ulcer with a visible vessel s/p epinephrine injection, application of hemostatic clips, and heater probe cautery Blood pressure stable since intervention, s/p 2 Units on 07/25 Patient's Hgb is downward trend to 8.1 this AM---may be a component of dilution from IVF, however given the downward trend and the patient's associated fatigue , we will order an additional 2 Units of PRBC's to be transfused We will continue to serially monitor H&H levels Cont Protonix BID, Carafate Diet advanced to Clear Liquids as per Surgery We will cont to monitor the patient's progress Elevated Troponin 2/2 Acute Blood Loss from GI Bleed Troponin peaked 1.06 , but is currently downtrending--patient without any acute complaints of chest pain, palpitations, SOB We will cont to monitor the patient at this time Lactic Acidosis 2/2 Above, resolved s/p IVF Hydration Acute Transaminitis likely 2/2 Above AST/ALT trending downward PT/INR remain within relative normal limits Patient does have a history of hepatitis C antibody in November 2016 Hepatitis C RNA done at the time was negative. 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 EKG reviewed--no QT prolongation noted We will continue the patient on methadone. DVT prophylaxis: SCDs VS, I&O, 24H, Fishbone Vital Signs/I&O Vital Signs Date Time Temp Pulse Resp B/P (MAP) Pulse Ox O2 Delivery O2 Flow Rate FiO2 07/27/17 08:39 18 07/27/17 06:00 98.6 92 130/59 (82) 99 Room Air I&O- Last 24 Hours up to 6 AM 07/27/17 06:00 Intake Total 1733 ml Output Total 1725 ml Balance 8 ml Laboratory Data 24H LABS Laboratory Tests 2 07/26/17 18:37: Total Creatine Kinase 237, Creatine Kinase MB 8.0H, Creatine Kinase MB Relative Index 3.37, Troponin I 0.68#H 07/27/17 06:14: White Blood Count 5.9, Red Blood Count 2.65L, Hemoglobin 8.1L, Hematocrit 23.2L , Mean Corpuscular Volume 87.4, Mean Corpuscular Hemoglobin 30.6, Mean Corpuscular Hemoglobin Concent 35.0, Red Cell Distribution Width 13.9, Platelet Count 120L, Neutrophils (%) (Auto) 40.9, Lymphocytes (%) (Auto) 45.4H, Monocytes (%) (Auto) 6.3H, Eosinophils (%) (Auto) 3.4H, Basophils (%) (Auto) 0.5 , Neutrophils # (Auto) 2.4, Lymphocytes # (Auto) 2.9, Monocytes # (Auto) 0.4, Eosinophils # (Auto) 0.2, Basophils # (Auto) 0.0, Large Unclassified Cells % 3.4 , Large Unclassified Cells # 0.2, Prothrombin Time 13.6, Prothromb Time International Ratio 1.03, Anion Gap 6L, Glomerular Filtration Rate > 60.0, Blood Urea Nitrogen 14#, Creatinine 0.73, Sodium Level 139, Potassium Level 3.8 , Chloride Level 105, Carbon Dioxide Level 28, Calcium Level 7.8L, Aspartate Amino Transf (AST/SGOT) 563H, Alanine Aminotransferase (ALT/SGPT) 855H, Alkaline Phosphatase 124H, Total Bilirubin 1.3H, Total Protein 5.2L, Albumin 2.5L, Magnesium Level 1.7L, Albumin/Globulin Ratio 0.93L CBC/BMP Laboratory Tests 07/26/17 12:37 07/26/17 18:37 07/27/17 01:57 07/27/17 06:14 Red Blood Count 2.65 L, Mean Corpuscular Volume 87.4, Mean Corpuscular Hemoglobin 30.6, Mean Corpuscular Hemoglobin Concent 35.0, Red Cell Distribution Width 13.9, Neutrophils (%) (Auto) 40.9, Lymphocytes (%) (Auto) 45.4 H, Monocytes (%) (Auto) 6.3 H, Eosinophils (%) (Auto) 3.4 H, Basophils (%) (Auto) 0.5, Neutrophils # (Auto) 2.4, Lymphocytes # (Auto) 2.9, Monocytes # ( Auto) 0.4, Eosinophils # (Auto) 0.2, Basophils # (Auto) 0.0, Calcium Level 7.8 L , Aspartate Amino Transf (AST/SGOT) 563 H, Alanine Aminotransferase (ALT/SGPT) 855 H, Alkaline Phosphatase 124 H, Total Bilirubin 1.3 H, Total Protein 5.2 L, Albumin 2.5 L Microbiology Microbiology 07/25/17 Blood Culture - Preliminary, Resulted No growth after 24 hours . All specim... 07/25/17 Blood Culture - Preliminary, Resulted No growth after 24 hours . All specim... 07/25/17 Gastrointestinal Tract Panel (PCR) - Final, Complete JOSSELIN KIMBROUGH MD Jul 27, 2017 12:43
[2017-07-27 14:00] VITALS: BP 113/58
[2017-07-27 19:50] VITALS: BP 134/68
[2017-07-27 20:20] LABS: MEAN CORPUSCULAR HEMOGLOBIN 31.5 pg (27.0-33.0); MEAN CORPUSCULAR VOLUME 87.6 fl (80.0-96.0); RED CELL DISTRIBUTION WIDTH 14.1 % (11.5-14.5); WHITE BLOOD COUNT 6.7 K/mm3 (4.0-10.0)
[2017-07-27] MEDS ORDERED: PANTOPRAZOLE 40MG TAB (PROTONIX) PO SCH (21:00)
[2017-07-27] MEDS: LR 1,000 ML IV SCH (21:45)
[2017-07-27 22:00] VITALS: BP_SYST 114; BP_SYST 117; BP_SYST 120; BP_DIAS 68; BP_DIAS 69
[2017-07-27] MEDS: PANTOPRAZOLE 40MG INJ (PROTONIX) (C9113) IV SCH (22:23)
[2017-07-27] MEDS: traMADol 50 MG TAB PO PRN (22:24)
[2017-07-28 05:16] LABS: BASO % 0.6 % (0.0-1.0); EOS # 0.2 K/mm3 (0.0-0.50); EOS % 4.1 % (0.0-3.0); INR 1.07; LARGE UNSTAINED CELL # 0.2 K/mm3 (0.0-0.4); LARGE UNSTAINED CELL % 3.9 % (0.0-4.0); LYMPH # 2.9 K/mm3 (1.5-6.5); LYMPH % 51.6 % (24.0-44.0); MEAN CORPUSCULAR VOLUME 88.5 fl (80.0-96.0); MONO # 0.4 K/mm3 (0.0-0.8); MONO % 7.1 % (0.0-5.0); NEUTROPHILS # 1.7 K/mm3 (1.8-7.7); NEUTROPHILS % 32.8 % (36.0-66.0); PLATELET COUNT, AUTOMATED 113 k/mm3 (150-450); RED CELL DISTRIBUTION WIDTH 14.4 % (11.5-14.5); WHITE BLOOD COUNT 5.2 K/mm3 (4.0-10.0)
[2017-07-28 05:24] LABS: ALBUMIN 2.5 GM/DL (3.2-5.2); ALKALINE PHOSPHATASE 111 U/L (45-117); ALT/SGPT 677 U/L (12-78); ANION GAP 9 MEQ/L (8-16); AST/SGOT 359 U/L (15-37); BILIRUBIN,TOTAL 1.3 MG/DL (0.2-1.0); BLOOD UREA NITROGEN 10 MG/DL (7-18); CARBON DIOXIDE LEVEL 28 MEQ/L (21-32); CHLORIDE LEVEL 106 MEQ/L (98-107); CREATININE FOR GFR 0.63 MG/DL (0.70-1.30); GLOMERULAR FILTRATION RATE > 60.0 (>60); GLUCOSE, FASTING 89 MG/DL (70-105); MAGNESIUM LEVEL 2.1 MG/DL (1.8-2.4); POTASSIUM SERUM 3.7 MEQ/L (3.5-5.1); SODIUM LEVEL 143 MEQ/L (136-145)
[2017-07-28 06:00] VITALS: BP 112/49
[2017-07-28 07:15] VITALS: BP 112/49
[2017-07-28 07:30] VITALS: BP 103/56
[2017-07-28] MEDS: LR 1,000 ML IV SCH ×2 (07:45→17:24)
[2017-07-28] MEDS: SUCRALFATE 1 GM TAB PO SCH ×4 (08:25→20:08)
[2017-07-28] MEDS: PANTOPRAZOLE 40MG INJ (PROTONIX) (C9113) IV SCH ×2 (08:25→20:09)
[2017-07-28] MEDS: METHADONE 10 MG TAB (S0109) PO SCH (08:25)
[2017-07-28] MEDS ORDERED: PANTOPRAZOLE 40MG TAB (PROTONIX) PO SCH (09:00)
[2017-07-28] MEDS: traMADol 50 MG TAB PO PRN ×2 (10:58→18:23)
[2017-07-28] MEDS ORDERED: PROPOFOL 200 MG/20 ML VIAL As Ordered ONE (14:28)
[2017-07-28] MEDS ORDERED: LIDOCAINE 2% INJ 100 MG/5 ML SDV (FOR ANES.) As Ordered ONE (14:28)
--- NOTE | 2017-07-28 14:51 | ROOR ---
Patient Name: Rocael Logan Procedure Date: 07/28/2017 2:22 PM Date of : 1995 Age: 22 Room: [facility] Gender: Male Note Status: Finalized Procedure: Upper GI endoscopy Indications: Suspected acute duodenal ulcer with hemorrhage Providers: Cristian Rosario MD Referring MD: Florence Pak Requesting Provider: Medicines: Monitored Anesthesia Care Complications: No immediate complications. Procedure: Pre-Anesthesia Assessment: - Prior to the procedure, a History and Physical was performed, and patient medications and allergies were reviewed. The patient is competent. The risks and benefits of the procedure and the sedation options and risks were discussed with the patient. All questions were answered and informed consent was obtained. Patient identification and proposed procedure were verified by the physician, the nurse and the anesthesiologist in the procedure room. Mental Status Examination: alert and oriented. Airway Examination: normal oropharyngeal airway and neck mobility. CV Examination: regular rate and rhythm. Prophylactic Antibiotics: The patient does not require prophylactic antibiotics. Prior Anticoagulants: The patient has taken no previous anticoagulant or antiplatelet agents. ASA Grade Assessment: II - A patient with mild systemic disease. After reviewing the risks and benefits, the patient was deemed in satisfactory condition to undergo the procedure. The anesthesia plan was to use monitored anesthesia care (MAC). Immediately prior to administration of medications, the patient was re-assessed for adequacy to receive sedatives. The heart rate, respiratory rate, oxygen saturations, blood pressure, adequacy of pulmonary ventilation, and response to care were monitored throughout the procedure. The physical status of the patient was re-assessed after the procedure. The Endoscope was introduced through the mouth, and advanced to the second part of duodenum. The upper GI endoscopy was accomplished without difficulty. The patient tolerated the procedure well. Findings: One non-bleeding superficial duodenal ulcer was found in the first portion of the duodenum (in the pyloric channel). The lesion was 12 mm in largest dimension. There is a hemostatic clip which was placed 07/26 noted at the distal end of the ulcer. The visible vessel seen at that EGD is not noted today. The duodenal bulb is quite short and there is bile coming from the ampulla just distal to the level of the ulcer. No gross lesions were noted in the entire examined stomach. The examined esophagus was normal. A small diverticulum was found in the second portion of the duodenum. Impression: - One non-bleeding duodenal ulcer. - No gross lesions in the stomach. - Normal esophagus. - No specimens collected. Recommendation: - Return patient to [facility] for ongoing care. - Resume previous diet. - Continue present medications. Cristian Rosario MD 07/28/2017 2:51:13 PM Number of Addenda: 0 Note Initiated On: 07/28/2017 2:22 PM Estimated Blood Loss: Estimated blood loss: none.
--- NOTE | 2017-07-28 15:43 | IPN ---
DATE: 07/28/2017 SUBJECTIVE: The patient is seen and examined in the room today. The patient had an upper endoscopy with multiple epinephrine injections and hemostatic clip on 07/26/2017. The patient had significant bright red blood per rectum on 07/27/2017 in the evening time. Early this morning, the patient had significant drop in hemoglobin and hematocrit and the patient had a blood transfusion. Throughout the hospitalization, the patient had two packed red blood cell transfusion on the 07/25/2017, two packed red blood cell transfusion on 07/27/2017, and two packed red blood cell transfusion on 07/28/2017. Today after the two packed red blood cell transfusion, hemoglobin increased from 8.7 to 10.4 and the patient stated he has subjective improvement of his weakness. OBJECTIVE: VITAL SIGNS: Temperature is 99.4, pulse is 80, respirations 16, blood pressure is 112/49, pulse oximetry 96% in room air. GENERAL: No sign of acute distress, alert and oriented times three. HEENT: Normocephalic, atraumatic. Extraocular motor grossly intact. CARDIOVASCULAR: Positive S1, S2, regular rate. LUNGS: Clear to auscultation bilaterally. ABDOMEN: Soft, some mild tenderness to palpation mainly in the lower abdomen. Bowel sounds present. EXTREMITIES: No edema. No sign of cyanosis. LABORATORY DATA: WBC 5.2, hemoglobin 8.7, hematocrit 25, platelet count is 113. Sodium is 143, potassium 3.7, chloride is 106, carbon dioxide 28, BUN is 10, creatinine is 0.63, GFR greater than 60, fasting glucose 8.6, calcium is 7.0, magnesium 2.1, total bilirubin is 1.3, AST is 359, ALT is 677, alkaline phosphatase 111, total protein 5. MICROBIOLOGY: Blood cultures negative after 72 hours times two sets. GI panel is negative. ASSESSMENT AND PLAN: 1. Acute upper gastrointestinal (GI) bleed, status post esophagogastroduodenoscopy (EGD). The patient had multiple epinephrine injections and application of hemostatic clips by Dr. Rosario on 07/26/2017. The patient had multiple packed red blood cell transfusions. Yesterday in the evening time, the patient was observed to have another bright red blood per rectum. Two packed red blood cell transfusion was also initiated early this morning. During this hospitalization, the patient already had six packed red blood cell transfusions. Clinically, the patient stated he has been improving after the blood transfusion. The patient is currently hemodynamically stable. The patient does not have orthostatic hypotension. Continue with Protonix and Carafate. We will refer the diet to the surgical team. 2. Elevated troponin, secondary to acute GI loss. The peak troponin is 1.06 on 07/26/2017 and troponins have started to trend down. 3. Transaminitis, secondary to acute GI bleed causing shock liver. Liver functions are improving. 4. History of hepatitis C exposures. Hepatitis C antibody level is positive. We will follow with hepatitis C RNA level. The patient never had treatment in the past. 5. History of heroin use. Quit several years ago. The patient has been on methadone. 6. Deep vein thrombosis (DVT) prophylaxis. Due to acute GI bleed, the patient will be on thromboembolic-deterrent stockings (TEDS), sequential compression device.
[2017-07-28 22:00] VITALS: BP 135/81
[2017-07-29] VITALS (10 sets, daily range): BP systolic 117–147; BP diastolic 55–101
[2017-07-29] MEDS: traMADol 50 MG TAB PO PRN ×2 (00:25→09:49)
[2017-07-29 07:03] LABS: INR 1.04
[2017-07-29 07:09] LABS: BASO % 0.6 % (0.0-1.0); EOS # 0.3 K/mm3 (0.0-0.50); EOS % 4.9 % (0.0-3.0); LARGE UNSTAINED CELL # 0.2 K/mm3 (0.0-0.4); LARGE UNSTAINED CELL % 3.6 % (0.0-4.0); LYMPH # 2.4 K/mm3 (1.5-6.5); LYMPH % 43.9 % (24.0-44.0); MEAN CORPUSCULAR HEMOGLOBIN 29.7 pg (27.0-33.0); MEAN CORPUSCULAR HGB CONC 34.6 g/dl (32.0-36.5); MEAN CORPUSCULAR VOLUME 85.7 fl (80.0-96.0); MONO # 0.4 K/mm3 (0.0-0.8); MONO % 7.2 % (0.0-5.0); NEUTROPHILS # 2.1 K/mm3 (1.8-7.7); NEUTROPHILS % 39.9 % (36.0-66.0); PLATELET COUNT, AUTOMATED 129 k/mm3 (150-450); RED CELL DISTRIBUTION WIDTH 15.5 % (11.5-14.5); WHITE BLOOD COUNT 5.4 K/mm3 (4.0-10.0)
[2017-07-29 07:24] LABS: ALBUMIN 2.5 GM/DL (3.2-5.2); ALBUMIN/GLOBULIN RATIO 0.86 (1.00-1.93); ALKALINE PHOSPHATASE 124 U/L (45-117); ALT/SGPT 465 U/L (12-78); ANION GAP 8 MEQ/L (8-16); AST/SGOT 196 U/L (15-37); BILIRUBIN,TOTAL 1.2 MG/DL (0.2-1.0); BLOOD UREA NITROGEN 11 MG/DL (7-18); CALCIUM LEVEL 8.3 MG/DL (8.5-10.1); CARBON DIOXIDE LEVEL 29 MEQ/L (21-32); CHLORIDE LEVEL 109 MEQ/L (98-107); CREATININE FOR GFR 1.03 MG/DL (0.70-1.30); GLUCOSE, FASTING 97 MG/DL (70-105); MAGNESIUM LEVEL 2.2 MG/DL (1.8-2.4); POTASSIUM SERUM 3.5 MEQ/L (3.5-5.1); SODIUM LEVEL 146 MEQ/L (136-145); TOTAL PROTEIN 5.4 GM/DL (6.4-8.2)
[2017-07-29 07:34] LABS: GLOMERULAR FILTRATION RATE > 60.0 (>60)
[2017-07-29] MEDS: METHADONE 10 MG TAB (S0109) PO SCH (08:04)
[2017-07-29] MEDS: PANTOPRAZOLE 40MG TAB (PROTONIX) PO SCH ×2 (08:05→20:50)
[2017-07-29] MEDS: SUCRALFATE 1 GM TAB PO SCH ×4 (08:05→20:50)
--- NOTE | 2017-07-29 15:27 | IPN ---
DATE: 07/29/2017 SUBJECTIVE: The patient is seen and examined in the room today. The patient stated that the he has not noticed any significant bright red blood in the stool. Instead, he started seeing dried blood. The patient does complain about dizziness when he tried to sit up. He requires assistance to go to the restroom. OBJECTIVE: VITAL SIGNS: Temperature is 99.8, pulse is 80, respirations 18, blood pressure is 124/67, pulse oximetry is 96% in room air. GENERAL: No sign of acute distress, alert and oriented times three. HEENT: Normocephalic, atraumatic. Extraocular motor grossly intact. CARDIOVASCULAR: Positive S1, S2, regular rate. LUNGS: Clear to auscultation bilaterally. ABDOMEN: Soft, nontender, nondistended. Bowel sounds present. EXTREMITIES: No edema. No sign of cyanosis. LABORATORY DATA: WBC is 5.4, hemoglobin 10.1, hematocrit 29.2, platelet count is 129. Sodium is 146, potassium 3.5, chloride 109, carbon dioxide is 29, BUN 11, creatinine 1.03, GFR greater than 60, fasting glucose 97, calcium is 8.3, magnesium 2.2, total bilirubin is 1.2, AST is 196, ALT is 465, alkaline phosphatase is 124, total protein 5.4, albumin 2.5. ASSESSMENT AND PLAN: 1. Acute upper gastrointestinal (GI) bleed, status post esophagogastroduodenoscopy (EGD). The patient also had multiple epinephrine injections and hemostatic clips by Dr. Rosario on 07/26/2017. Due to recurrence of the GI bleed, the patient was brought back to the procedure room for repeated endoscopy which was performed on 07/28/2017 in the afternoon. The second upper endoscopy shows non-bleeding duodenal ulcers. The patient had signs of orthostasis and in the intake and output, the patient does have a negative balance. The patient did experience significant GI bleed. The patient had multiple packed red blood cell transfusions in the last few days, a total of six packed red blood cell from 07/25/2017 to 07/28/2017. We will continue to trend the hemoglobin and hematocrit. We encourage the patient to increase oral intake as tolerated. Followup with orthostatic hypotension. 2. Orthostatic hypotension. Encourage oral intake. 3. Elevated troponin, secondary to acute GI bleed. The peak troponin is 1.06 on 07/26/2017. The patient does not complain about any chest pain. 4. Transaminitis, secondary to acute GI bleed causing shock liver. Liver enzymes are improving. 5. History of hepatitis C exposures. Hepatitis C antibody level is positive. We will continue to follow the hepatitis C RNA level, results pending. The patient never had hepatitis C treatment in the past. The patient does have known hepatitis C exposures. 6. History of IV heroin use. Quit many years ago. The patient continued on methadone. 7. Deep vein thrombosis (DVT) prophylaxis. Due to acute GI bleed, no anticoagulation is warranted at this moment. The patient is continued on thromboembolic-deterrent stockings (TEDS), sequential compression device.
[2017-07-29] MEDS ORDERED: SENOKOT S TAB PO SCH (21:00)
[2017-07-30 06:00] VITALS: BP 130/64
[2017-07-30 06:05] VITALS: BP 131/78
[2017-07-30 06:10] VITALS: BP 140/78
[2017-07-30 07:04] LABS: BASO % 0.5 % (0.0-1.0); EOS # 0.3 K/mm3 (0.0-0.50); EOS % 6.9 % (0.0-3.0); LARGE UNSTAINED CELL # 0.2 K/mm3 (0.0-0.4); LARGE UNSTAINED CELL % 3.2 % (0.0-4.0); LYMPH # 2.3 K/mm3 (1.5-6.5); LYMPH % 44.7 % (24.0-44.0); MEAN CORPUSCULAR HGB CONC 34.7 g/dl (32.0-36.5); MEAN CORPUSCULAR VOLUME 86.5 fl (80.0-96.0); MONO # 0.4 K/mm3 (0.0-0.8); MONO % 7.9 % (0.0-5.0); NEUTROPHILS # 1.7 K/mm3 (1.8-7.7); NEUTROPHILS % 36.7 % (36.0-66.0); PLATELET COUNT, AUTOMATED 135 k/mm3 (150-450); RED CELL DISTRIBUTION WIDTH 15.6 % (11.5-14.5); WHITE BLOOD COUNT 4.7 K/mm3 (4.0-10.0)
[2017-07-30 07:29] LABS: ALBUMIN 2.6 GM/DL (3.2-5.2); ALBUMIN/GLOBULIN RATIO 0.87 (1.00-1.93); ALKALINE PHOSPHATASE 123 U/L (45-117); ALT/SGPT 335 U/L (12-78); ANION GAP 7 MEQ/L (8-16); AST/SGOT 103 U/L (15-37); BILIRUBIN,TOTAL 0.9 MG/DL (0.2-1.0); BLOOD UREA NITROGEN 9 MG/DL (7-18); CALCIUM LEVEL 8.1 MG/DL (8.5-10.1); CARBON DIOXIDE LEVEL 30 MEQ/L (21-32); CHLORIDE LEVEL 107 MEQ/L (98-107); CREATININE FOR GFR 0.89 MG/DL (0.70-1.30); GLOMERULAR FILTRATION RATE > 60.0 (>60); GLUCOSE, FASTING 96 MG/DL (70-105); MAGNESIUM LEVEL 2.4 MG/DL (1.8-2.4); POTASSIUM SERUM 3.3 MEQ/L (3.5-5.1); SODIUM LEVEL 144 MEQ/L (136-145); TOTAL PROTEIN 5.6 GM/DL (6.4-8.2)
[2017-07-30 07:55] VITALS: BP_SYST 118; BP_SYST 123; BP_SYST 127; BP_DIAS 53; BP_DIAS 62; BP_DIAS 63
[2017-07-30] MEDS: SUCRALFATE 1 GM TAB PO SCH ×4 (08:18→21:36)
[2017-07-30] MEDS: PANTOPRAZOLE 40MG TAB (PROTONIX) PO SCH ×2 (08:18→21:35)
[2017-07-30] MEDS: METHADONE 10 MG TAB (S0109) PO SCH (08:18)
[2017-07-30] MEDS ORDERED: POTASSIUM CHLORIDE 10 MEQ SR TABLET PO ONE (10:45)
[2017-07-30 14:00] VITALS: BP 133/76
--- NOTE | 2017-07-30 15:32 | IPN ---
DATE: 07/30/2017 SUBJECTIVE: Patient is seen and examined in the room today. Patient had one bowel movement yesterday and it is tarry and black. No bright red blood is observed in the bowel movement. Patient stated his lightheadedness when he tries to sit up has been improving, however he still feels he is not back to his baseline, but he does not require assistance to go to the restroom due to the dizziness and unsteady gait anymore. Patient tolerated liquid diet well. OBJECTIVE: VITAL SIGNS: Temperature is 99.2, pulse is 78, respirations 18, blood pressure supine is 123/53, sitting is 118/62, standing is 127/63, oxygen saturation is 98% in room air. GENERAL: No sign of acute distress, alert and oriented times three. HEENT: Normocephalic, atraumatic. Extraocular motors grossly intact. CARDIOVASCULAR: Positive S1, S2, regular rate. LUNGS: Clear to auscultation bilaterally. ABDOMEN: Soft, nontender, nondistended. Bowel sounds present. EXTREMITIES: No edema. No sign of cyanosis. LABORATORY DATA: WBC is 4.7, hemoglobin 10.1, hematocrit 29, platelet count is 135. Sodium is 144, potassium 3.3, chloride 107, carbon dioxide 30, BUN 9, creatinine 0.89, GFR greater than 60, fasting glucose 96, calcium 8.1, magnesium 2.4, total bilirubin is 0.9, AST is 103, ALT is 335, alkaline phosphatase is 123, total protein 5.6, albumin 2.6. Blood culture final report shows no growth after 5 days times two sets. ASSESSMENT AND PLAN: 1. Acute upper gastrointestinal (GI) bleed, secondary to gastric ulcer. Patient had an upper endoscopy and he also had multiple epinephrine injections and hemostatic clips by Dr. Rosario on 07/26/2017. Due to recurrent gastrointestinal (GI) bleed, patient was brought back to the procedure room for repeated upper endoscopy on 07/28/2017. The second upper endoscopy showed non-bleeding duodenal ulcers. Patient originally had signs of orthostasis, however with fluid resuscitation patient's orthostasis has been improving. Currently, patient has tarry stools but there is no bright red blood observed in the bowel movements. Patient does have a history of multiple blood transfusions. Two packs of red blood cells were transfused on 07/25/2017, two packs red blood cells were transfused on 07/27/2017, and two packs red blood cells were transfused on 07/28/2017. Patient's hemoglobin and hematocrit has been monitored continuously for the last 48 hours and there is no significant decrease of hemoglobin and hematocrit. Will continue to monitor. 2. Orthostatic hypotension, improved. 3. Elevated troponin, secondary to acute gastrointestinal (GI) bleed. Peak troponin is 1.06 on 07/26/2017. Does not complain about any chest pain. 4. Shock liver secondary to acute gastrointestinal (GI) blood loss. Liver enzymes are improving. 5. History of hepatitis C exposure. Hepatitis C antibody level is positive. We are still waiting for hepatitis C RNA level. Patient has never had hepatitis C treatment in the past. 6. History of IV heroin use, quit many years ago. Continued on methadone. 7. Deep vein thrombosis (DVT) prophylaxis. Due to the gastrointestinal (GI) bleed, patient is not on any type of anticoagulation. Continue with thromboembolism deterrents (TEDs) and sequential compression device.
[2017-07-30] MEDS: traMADol 50 MG TAB PO PRN (21:36)
[2017-07-30 22:00] VITALS: BP 138/71
[2017-07-31 06:00] VITALS: BP_SYST 137; BP_SYST 141; BP_SYST 147; BP_SYST 47; BP_DIAS 83; BP_DIAS 92; BP_DIAS 95
[2017-07-31 07:31] LABS: BASO % 0.8 % (0.0-1.0); EOS # 0.3 K/mm3 (0.0-0.50); LARGE UNSTAINED CELL # 0.1 K/mm3 (0.0-0.4); LARGE UNSTAINED CELL % 2.6 % (0.0-4.0); LYMPH # 2.1 K/mm3 (1.5-6.5); LYMPH % 43.2 % (24.0-44.0); MEAN CORPUSCULAR HEMOGLOBIN 30.1 pg (27.0-33.0); MEAN CORPUSCULAR HGB CONC 34.9 g/dl (32.0-36.5); MEAN CORPUSCULAR VOLUME 86.3 fl (80.0-96.0); MONO # 0.3 K/mm3 (0.0-0.8); MONO % 6.4 % (0.0-5.0); NEUTROPHILS # 1.9 K/mm3 (1.8-7.7); NEUTROPHILS % 40.1 % (36.0-66.0); PLATELET COUNT, AUTOMATED 173 k/mm3 (150-450); RED CELL DISTRIBUTION WIDTH 15.2 % (11.5-14.5); WHITE BLOOD COUNT 4.7 K/mm3 (4.0-10.0)
[2017-07-31 07:39] LABS: INR 1.03
[2017-07-31 08:23] LABS: ALBUMIN/GLOBULIN RATIO 0.97 (1.00-1.93); ALKALINE PHOSPHATASE 119 U/L (45-117); ALT/SGPT 272 U/L (12-78); ANION GAP 9 MEQ/L (8-16); AST/SGOT 78 U/L (15-37); BILIRUBIN,TOTAL 0.8 MG/DL (0.2-1.0); BLOOD UREA NITROGEN 9 MG/DL (7-18); CARBON DIOXIDE LEVEL 28 MEQ/L (21-32); CHLORIDE LEVEL 107 MEQ/L (98-107); CREATININE FOR GFR 0.84 MG/DL (0.70-1.30); GLOMERULAR FILTRATION RATE > 60.0 (>60); GLUCOSE, FASTING 90 MG/DL (70-105); MAGNESIUM LEVEL 2.5 MG/DL (1.8-2.4); POTASSIUM SERUM 3.7 MEQ/L (3.5-5.1); SODIUM LEVEL 144 MEQ/L (136-145); TOTAL PROTEIN 6.1 GM/DL (6.4-8.2)
[2017-07-31] MEDS: METHADONE 10 MG TAB (S0109) PO SCH (08:35)
[2017-07-31] MEDS: SUCRALFATE 1 GM TAB PO SCH ×2 (08:36→12:30)
[2017-07-31] MEDS: traMADol 50 MG TAB PO PRN (08:36)
[2017-07-31] MEDS: PANTOPRAZOLE 40MG TAB (PROTONIX) PO SCH (08:36)
[2017-07-31] MEDS ORDERED: MIRA3350 PO (11:45)
[2017-07-31] MEDS ORDERED: PANT40TA2 PO (11:45)
--- NOTE | 2017-07-31 17:24 | DSES ---
DATE OF ADMISSION: 07/25/2017 DATE OF DISCHARGE: 07/31/2017 PRIMARY CARE PROVIDER: None prior to hospitalization. The patient will establish with Dr. Tamayo after discharge. CONSULTANTS: General surgeon, Dr. Rosario. PROCEDURES: Upper endoscopy times two performed on 07/27/2017 and 07/28/[address] Cristian Rosario. hemostatic clips. Epinephrine injection to pyloric channel ulcers. COMPLICATIONS: None. DISCHARGE DIAGNOSES: 1. Acute upper gastrointestinal (GI) bleed secondary to pyloric channel ulcers, status post hemostatic clips and epinephrine injections. 2. Acute blood loss anemia requiring blood transfusions. 3. Orthostatic hypotension. 4. Demand ischemic causing elevate troponins. 5. Shock liver secondary to acute GI blood loss. 6. History of hepatitis C exposure. 7. History of IV heroin use, on methadone. 8. Transient loss of consciousness secondary to acute blood GI loss. HOSPITAL COURSE: The patient is a 22-year-old male who presented to [facility] on 07/25/2017 after bloody bowel movements. The patient was started on the Protonix drip and started on IV fluid. The patient was placed nothing by mouth and general surgeon, Dr. Rosario, was consulted. The patient was admitted to the intensive care unit (ICU). Within several hours after the patient was admitted to the ICU, the patient started to have acute decrease of hemoglobin and hematocrit and that warranted urgent blood transfusion. On 07/25/2017, the patient had two packed red blood cell transfusions to maintain adequate hemoglobin and hematocrit. On 07/27/2017, the patient continued to have persistent drop of hemoglobin and hematocrit, and subsequently the patient required another two packed red blood cell transfusions. The patient was brought to the procedure suite and the patient had an esophagogastroduodenoscopy (EGD) with application of hemostatic clip to the pyloric ulcers and the patient also received several injections of epinephrine solution to the ulcer site. The patient tolerated the procedure well without any significant adverse effects. After the procedure, the patient continued to have significant decrease of hemoglobin and hematocrit. Another two packed red blood cell transfusion was given in the morning of 07/28/2017 and in the evening time, the patient was brought back to the procedure suite and had a repeated upper gastrointestinal (GI) endoscopy. Only non-bleeding ulcer was found on the repeated upper endoscopy. The patient continued to be followed with the hemoglobin and hematocrit. Later, the patient's started turning from bloody to tarry black and the patient started to develop orthostatic hypotension. The patient was continued on the fluid resuscitation. In a few days, the patient's symptoms resolved and the patient was able to tolerate the solid diet. On 07/31/2017, the patient was determined medically stable for discharge with the recommendation to followup with the primary care provider. The patient is recommended to establish with a primary care provider in 1-2 weeks. The patient is recommended to have repeat laboratory test done before the primary care provider (PCP) visit. Throughout the whole hospitalization, the patient was found to have an elevated troponin and transaminitis in the beginning of the hospitalization. With medical management and the blood transfusion, the patient's troponin started to trend down from 1 to 0.8. Aspartate aminotransferase (AST) and alanine aminotransferase (ALT) also continued to decrease with medical management. MICROBIOLOGY: Blood cultures negative after five days obtained on 07/25/2017 times two sets. GI panel on 07/25/2017 is negative. History of blood transfusion: Two packed red blood cell transfusion on 07/25/2017. Two packed red blood cell transfusion on 07/27/2017. Two packed red blood cell transfusion on 07/28/2017. IMAGING STUDIES: Abdominal ultrasound on 07/25/2017 showed thickened gallbladder wall. No cholelithiasis. CT of the head without contrast on 07/25/2017 showed no intracranial lesion. DISCHARGE MEDICATIONS: - pantoprazole 40 mg by mouth twice a day - MiraLAX 17 grams by mouth daily as needed for chronic narcotic use induced constipation - gabapentin 300 mg by mouth three times a day - ibuprofen 600 mg by mouth every eight hours as needed - methadone 40 mg by mouth daily DISCHARGE INSTRUCTIONS: Discharge home. Activity as tolerated. Diet as tolerated. The patient should establish with Dr. Tamayo on 08/06/2017. The patient is recommended to have laboratory test done before primary care provider visit. The patient is recommended to obtain infectious disease specialist referral for history of hepatitis C exposure and positive hepatitis C RNA count. DISCHARGE CONDITION: Stable. DISCHARGE TIME: Greater than 30 minutes.
[2017-08-04 00:06] LABS: HEPATITIS C VIRUS GENOTYPE 1b (.)
== END 2017-07-31 13:30 | disposition home or self-care (01) | DRG 241 ==
LOC: EDBD 12:24 → M ED 12:24 → M ED INP 15:08 → M ICU 18:01 → M MS5PR 07-26 13:15
PROVIDERS: ADMIT Hospitalist; ATTEND Internal Medicine
PROC: 30253N1 (ICD-10-PCS; 2017-07-25)
PROC: 0W3P8ZZ Control Bleeding in Gastrointestinal Tract, Via Natural or Artificial Opening Endoscopic (ICD-10-PCS; principal; 2017-07-27)
PROC: 3E0J8GC Introduction of Other Therapeutic Substance into Biliary and Pancreatic Tract, Via Natural or Artificial Opening Endoscopic (ICD-10-PCS; 2017-07-27)
PROC: 0DJ08ZZ Inspection of Upper Intestinal Tract, Via Natural or Artificial Opening Endoscopic (ICD-10-PCS; 2017-07-28)
DX: K26.0 Acute duodenal ulcer with hemorrhage (principal); K72.00 Acute and subacute hepatic failure without coma; E87.2 Acidosis; F11.20 Opioid dependence, uncomplicated; R74.0 Nonspecific elevation of levels of transaminase and lactic acid dehydrogenase [LDH]; F17.210 Nicotine dependence, cigarettes, uncomplicated; B19.20 Unspecified viral hepatitis C without hepatic coma; K57.10 Diverticulosis of small intestine without perforation or abscess without bleeding; I95.1 Orthostatic hypotension; D62 Acute posthemorrhagic anemia; Z79.899 Other long term (current) drug therapy; Z79.1 Long term (current) use of non-steroidal anti-inflammatories (NSAID)

== ENCOUNTER → 2017-08-04 | Outpatient (CLI) | payer OTHER ==
[~2017-08-04] MED LIST: GABA-282 PO; IBUP1TAB6 PO; METH10CO PO; METH40TA PO; MIRA3350 PO; PANT40TA2 PO; RANI1TAB6 PO
[2017-08-04 15:36] LABS: ALBUMIN 3.6 GM/DL (3.2-5.2); ALBUMIN/GLOBULIN RATIO 1.03 (1.00-1.93); ANION GAP 6 MEQ/L (8-16); AST/SGOT 55 U/L (15-37); BILIRUBIN,TOTAL 0.6 MG/DL (0.2-1.0); BLOOD UREA NITROGEN 7 MG/DL (7-18); CALCIUM LEVEL 8.8 MG/DL (8.5-10.1); CARBON DIOXIDE LEVEL 30 MEQ/L (21-32); CHLORIDE LEVEL 105 MEQ/L (98-107); CREATININE FOR GFR 0.91 MG/DL (0.70-1.30); GLOMERULAR FILTRATION RATE > 60.0 (>60); GLUCOSE, FASTING 71 MG/DL (70-105); POTASSIUM SERUM 4.2 MEQ/L (3.5-5.1); SODIUM LEVEL 141 MEQ/L (136-145); TOTAL PROTEIN 7.1 GM/DL (6.4-8.2)
[2017-08-04 15:50] LABS: ALKALINE PHOSPHATASE 116 U/L (45-117); ALT/SGPT 137 U/L (12-78)
[2017-08-04 15:54] LABS: MEAN CORPUSCULAR HEMOGLOBIN 29.6 pg (27.0-33.0); MEAN CORPUSCULAR HGB CONC 34.3 g/dl (32.0-36.5); MEAN CORPUSCULAR VOLUME 86.4 fl (80.0-96.0); RED CELL DISTRIBUTION WIDTH 13.9 % (11.5-14.5); WHITE BLOOD COUNT 5.7 K/mm3 (4.0-10.0)
== END ==
LOC: M LAB 14:12
PROVIDERS: ATTEND Internal Medicine
DX: K92.2 Gastrointestinal hemorrhage, unspecified (principal)

== ENCOUNTER → 2017-08-17 | Outpatient (REF) | payer OTHER ==
[2017-08-17 16:18] LABS: ALBUMIN/GLOBULIN RATIO 1.08 (1.00-1.93); ALKALINE PHOSPHATASE 106 U/L (45-117); ALT/SGPT 63 U/L (12-78); ANION GAP 5 MEQ/L (8-16); AST/SGOT 38 U/L (15-37); BILIRUBIN,TOTAL 0.4 MG/DL (0.2-1.0); BLOOD UREA NITROGEN 11 MG/DL (7-18); CALCIUM LEVEL 9.4 MG/DL (8.5-10.1); CARBON DIOXIDE LEVEL 27 MEQ/L (21-32); CHLORIDE LEVEL 109 MEQ/L (98-107); CREATININE FOR GFR 0.82 MG/DL (0.70-1.30); GLOMERULAR FILTRATION RATE > 60.0 (>60); GLUCOSE, FASTING 104 MG/DL (70-105); POTASSIUM SERUM 4.2 MEQ/L (3.5-5.1); SODIUM LEVEL 141 MEQ/L (136-145); TOTAL PROTEIN 7.7 GM/DL (6.4-8.2)
[2017-08-17 16:20] LABS: BASO # 0.1 K/mm3 (0.0-0.2); EOS # 0.4 K/mm3 (0.0-0.50); EOS % 7.2 % (0.0-3.0); LARGE UNSTAINED CELL # 0.2 K/mm3 (0.0-0.4); LARGE UNSTAINED CELL % 3.4 % (0.0-4.0); LYMPH # 2.6 K/mm3 (1.5-6.5); MEAN CORPUSCULAR HEMOGLOBIN 28.9 pg (27.0-33.0); MEAN CORPUSCULAR HGB CONC 33.8 g/dl (32.0-36.5); MEAN CORPUSCULAR VOLUME 85.5 fl (80.0-96.0); MONO # 0.4 K/mm3 (0.0-0.8); MONO % 7.5 % (0.0-5.0); NEUTROPHILS # 2.3 K/mm3 (1.8-7.7); NEUTROPHILS % 39.8 % (36.0-66.0); PLATELET COUNT, AUTOMATED 320 k/mm3 (150-450); RED CELL DISTRIBUTION WIDTH 13.3 % (11.5-14.5); WHITE BLOOD COUNT 5.8 K/mm3 (4.0-10.0)
[2017-08-20 08:07] LABS: ALT 58 IU/L (0-55); FIBROSIS STAGE F1-F2 (.); GGT 79 IU/L (0-65); HAPTOGLOBIN 42 mg/dL (34-200); NECROINFLAM SCORE 0.36 (0.00-0.17); NECROINFLAMM GRADE A1-A2 (.); TOTAL BILIRUBIN 0.3 mg/dL (0.0-1.2)
[2017-08-20 10:14] LABS: HEPATITIS C QUANTITATION <15 IU/mL (.)
== END ==
LOC: M SFHCPLAZ 13:45
DX: B18.2 Chronic viral hepatitis C (principal); K25.3 Acute gastric ulcer without hemorrhage or perforation

== ENCOUNTER → 2018-01-28 | Outpatient (CLI) | payer OTHER ==
[2018-01-28 15:58] LABS: HEMATOCRIT 40.2 % (42.0-52.0); HEMOGLOBIN 13.6 g/dl (14.0-18.0); MEAN CORPUSCULAR HEMOGLOBIN 26.9 pg (27.0-33.0); MEAN CORPUSCULAR HGB CONC 33.8 g/dl (32.0-36.5); MEAN CORPUSCULAR VOLUME 79.4 fl (80.0-96.0); PLATELET COUNT, AUTOMATED 320 10^3/uL (150-450); RED BLOOD COUNT 5.06 10^6/uL (4.30-6.10); RED CELL DISTRIBUTION WIDTH 15.2 % (11.5-14.5); WHITE BLOOD COUNT 10.4 10^3/uL (4.0-10.0)
[2018-01-28 16:25] LABS: ALBUMIN 4.1 GM/DL (3.2-5.2); ALBUMIN/GLOBULIN RATIO 1.05 (1.00-1.93); ALKALINE PHOSPHATASE 96 U/L (45-117); ALT/SGPT 68 U/L (12-78); ANION GAP 6 MEQ/L (8-16); AST/SGOT 39 U/L (7-37); BILIRUBIN,TOTAL 0.5 MG/DL (0.2-1.0); BLOOD UREA NITROGEN 16 MG/DL (7-18); CALCIUM LEVEL 9.2 MG/DL (8.5-10.1); CARBON DIOXIDE LEVEL 29 MEQ/L (21-32); CHLORIDE LEVEL 106 MEQ/L (98-107); CREATININE FOR GFR 0.87 MG/DL (0.70-1.30); GLOMERULAR FILTRATION RATE > 60.0 (>60); GLUCOSE, FASTING 101 MG/DL (70-100); POTASSIUM SERUM 4.1 MEQ/L (3.5-5.1); SODIUM LEVEL 141 MEQ/L (136-145)
[2018-01-28 17:22] LABS: CHLAMYDIA DNA AMPLIFICATION NEGATIVE (NEGATIVE); GC DNA AMPLIFICATION NEGATIVE (NEGATIVE)
[2018-01-29 10:57] LABS: HEPATITIS B SURFACE ANTIGEN NEGATIVE (NEGATIVE)
[2018-01-29 13:11] LABS: HEPATITIS C VIRUS ABY INDEX > 11.0 INDEX (<0.8)
[2018-01-29 13:12] LABS: HIV 1&2 SCREEN CENTAUR NEGATIVE (NEGATIVE)
[2018-02-02 00:06] LABS: HCV RNA NAA QUALITATIVE Negative (Negative)
== END ==
LOC: M LAB 15:06
DX: F11.20 Opioid dependence, uncomplicated (principal)
CPT/HCPCS: 93005

== ENCOUNTER 2018-08-10 21:41 | Emergency (ER) | payer OTHER ==
[2018-08-10] MEDS: ONDANSETRON 4MG/2ML VIAL (J2405) IV (23:05)
[2018-08-10] MEDS: NS 1,000 ML IV (23:05)
[2018-08-10 23:25] LABS: BASO # 0.1 10^3/uL (0.0-0.2); BASO % 0.8 % (0.0-1.0); EOS # 0.5 10^3/uL (0.0-0.50); EOS % 4.5 % (0.0-3.0); HEMATOCRIT 44.6 % (42.0-52.0); HEMOGLOBIN 15.2 g/dl (13.5-17.5); IMMATURE GRANULOCYTE % 0.4 % (0-3.0); LYMPH # 2.8 10^3/uL (1.5-6.5); LYMPH % 27.7 % (24.0-44.0); MEAN CORPUSCULAR HEMOGLOBIN 28.7 pg (27.0-33.0); MEAN CORPUSCULAR HGB CONC 34.1 g/dl (32.0-36.5); MEAN CORPUSCULAR VOLUME 84.2 fl (80.0-96.0); MONO # 0.8 10^3/uL (0.0-0.8); MONO % 7.5 % (0.0-5.0); NEUTROPHILS # 5.9 10^3/uL (1.8-7.7); NEUTROPHILS % 59.1 % (36.0-66.0); PLATELET COUNT, AUTOMATED 280 10^3/uL (150-450)
[2018-08-10 23:36] LABS: INR 0.97; PARTIAL THROMBOPLASTIN TIME 31.7 SECONDS (25.4-37.6)
[2018-08-10] MEDS ORDERED: ISOVUE-370 76% 100ML VIAL (Q9967) As Ordered (23:49)
[2018-08-11 00:10] LABS: ALBUMIN 4.2 GM/DL (3.2-5.2); ALBUMIN/GLOBULIN RATIO 1.17 (1.00-1.93); ALKALINE PHOSPHATASE 102 U/L (45-117); ALT/SGPT 86 U/L (12-78); ANION GAP 6 MEQ/L (8-16); AST/SGOT 58 U/L (7-37); BILIRUBIN,DIRECT 0.1 MG/DL (0.0-0.2); BILIRUBIN,TOTAL 0.5 MG/DL (0.2-1.0); BLOOD UREA NITROGEN 13 MG/DL (7-18); CALCIUM LEVEL 9.2 MG/DL (8.5-10.1); CARBON DIOXIDE LEVEL 27 MEQ/L (21-32); CHLORIDE LEVEL 107 MEQ/L (98-107); CREATININE FOR GFR 0.91 MG/DL (0.70-1.30); GLOMERULAR FILTRATION RATE > 60.0 (>60); GLUCOSE, FASTING 94 MG/DL (70-100); LIPASE 122 U/L (73-393); POTASSIUM SERUM 4.2 MEQ/L (3.5-5.1); SODIUM LEVEL 140 MEQ/L (136-145); TOTAL PROTEIN 7.8 GM/DL (6.4-8.2)
== END 2018-08-11 01:44 | disposition home or self-care (01) ==
LOC: M ED 08-11 01:44
DX: K29.70 Gastritis, unspecified, without bleeding (principal); F41.9 Anxiety disorder, unspecified; F11.10 Opioid abuse, uncomplicated; F17.210 Nicotine dependence, cigarettes, uncomplicated; Z79.899 Other long term (current) drug therapy
CPT/HCPCS: J2405

== ENCOUNTER → 2020-02-15 | Outpatient (REF) | payer OTHER ==
[~2020-02-15] MED LIST changes: -GABA-282 PO; +GABA-843 PO; -PANT40TA2 PO; +PANT40TA3 PO; +PROT1TAB2 PO; +RANI-397 PO; -RANI1TAB6 PO; +SUCR1TA PO
== END ==
LOC: M LAB REF 21:24
PROVIDERS: ATTEND Physician Assistant
DX: J02.9 Acute pharyngitis, unspecified (principal)

== ENCOUNTER 2020-11-02 10:14 | Emergency (ER) | payer OTHER ==
[~2020-11-02] VITALS: Ht 185.4 cm; Wt 85.6 kg
[~2020-11-02 10:14] MED LIST changes: +PANT40TA29 PO; -PANT40TA3 PO
[2020-11-02] MEDS ORDERED: BUPR1FIL3 (10:44)
[2020-11-02] MEDS ORDERED: ONDANSETRON 4MG/2ML VIAL IV ONE (11:15)
[2020-11-02] MEDS ORDERED: NS 1,000 ML IV ONE (11:15)
[2020-11-02] MEDS ORDERED: PANTOPRAZOLE 40MG VIAL (C9113 PER 1) IV ONE (11:30)
[2020-11-02 12:02] LABS: BASO # 0.1 10^3/uL (0.0-0.2); BASO % 0.8 % (0.0-1.0); EOS # 0.3 10^3/uL (0.0-0.5); EOS % 3.4 % (0.0-3.0); HEMATOCRIT 46.1 % (42.0-52.0); HEMOGLOBIN 15.2 g/dl (13.5-17.5); LYMPH # 1.2 10^3/uL (1.5-5.0); LYMPH % 15.1 % (24.0-44.0); MEAN CORPUSCULAR HEMOGLOBIN 28.5 pg (27.0-33.0); MEAN CORPUSCULAR VOLUME 86.3 fl (80.0-96.0); MONO # 0.4 10^3/uL (0.0-0.8); MONO % 5.1 % (0.0-5.0); NEUTROPHILS # 5.9 10^3/uL (1.5-8.5); NEUTROPHILS % 75.3 % (36.0-66.0); PLATELET COUNT, AUTOMATED 266 10^3/uL (150-450); RED BLOOD COUNT 5.34 10^6/uL (4.30-6.10); WHITE BLOOD COUNT 7.8 10^3/uL (4.0-10.0)
[2020-11-02 12:12] LABS: INR 1.02; PROTHROMBIN TIME 13.6 SECONDS (12.5-14.3)
[2020-11-02 12:13] LABS: PARTIAL THROMBOPLASTIN TIME 32.8 SECONDS (24.2-38.5)
[2020-11-02 12:31] LABS: ALBUMIN 4.1 GM/DL (3.2-5.2); ALT/SGPT 31 U/L (12-78); BILIRUBIN,DIRECT 0.2 MG/DL (0.0-0.2); BILIRUBIN,TOTAL 0.6 MG/DL (0.2-1.0); BLOOD UREA NITROGEN 6 MG/DL (7-18); CALCIUM LEVEL 9.6 MG/DL (8.5-10.1); CARBON DIOXIDE LEVEL 28 MEQ/L (21-32); CHLORIDE LEVEL 107 MEQ/L (98-107); CK-MB VALUE MASS < 1.0 NG/ML (<3.6); CPK CREATINE PHOSPHOKINASE 76 U/L (39-308); CREATININE FOR GFR 0.72 MG/DL (0.70-1.30); FREE T4 1.08 NG/DL (0.76-1.46); GLOMERULAR FILTRATION RATE > 60.0 (>60); GLUCOSE, FASTING 104 MG/DL (70-100); LIPASE 83 U/L (73-393); MB/CK RELATIVE INDEX 1.32 (< OR =4); POTASSIUM SERUM 4.3 MEQ/L (3.5-5.1); SODIUM LEVEL 138 MEQ/L (136-145); TOTAL PROTEIN 8.3 GM/DL (6.4-8.2); TROPONIN I < 0.02 NG/ML (< 0.10)
[2020-11-02] MEDS ORDERED: ISOVUE-370 76% 100ML VIAL As Ordered ONE (12:34)
--- NOTE | 2020-11-02 12:58 | REP ---
INDICATION: LLQ TTP, positive guaiac, h/o diverticulitis. COMPARISON: Comparison CT study August 11, 2018.. TECHNIQUE: Helical scanning was acquired and 4 mm axial images are re-formatted. Coronal and sagittal MPR images were generated and reviewed. The contrast enhancement dose is 100 mL of intravenous Isovue 370. 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 The lung bases are clear on axial CT images. There is no evidence of pleural effusion or upper abdominal ascites. Liver and spleen are at the upper range of normal in size unchanged. No focal hepatic or splenic lesion is seen. No abnormality is noted in the gallbladder. The pancreas is unremarkable. Normal adrenal glands are observed. The kidneys enhance symmetrically and are morphologically intact. No hydronephrosis is seen. No retroperitoneal mass or adenopathy is observed. There is moderate stool in the distal colon and right colon. No small or large bowel dilation is seen. Seminal vesicles, prostate and urinary bladder are unremarkable. No abdominal wall defect is seen. No bony destructive lesion is appreciated. There is dextroconvex curvature in the lumbar spine and sacralization of the transverse process at L5 is noted on the right with a pseudarthrosis between it and the upper sacrum. No acute bony abnormality is seen. Normal appendix is visible in the right lower quadrant. IMPRESSION: Borderline size liver and spleen unchanged. Otherwise negative. No acute intra-abdominal or pelvic abnormality seen. <Electronically signed by Mann Klein > 11/02/20 [id number]
[2020-11-02 13:48] LABS: AMPHETAMINES LEVEL URINE NEGATIVE (NEGATIVE); BARBITURATES URINE NEGATIVE (NEGATIVE); BENZODIAZEPINES URINE NEGATIVE (NEGATIVE); CANNABINOIDS URINE POSITIVE (NEGATIVE); COCAINE METABOLITE URINE NEGATIVE (NEGATIVE); METHADONE URINE NEGATIVE (NEGATIVE); OPIATES URINE NEGATIVE (NEGATIVE); PHENCYCLIDINE URINE NEGATIVE (NEGATIVE)
[2020-11-02] MEDS ORDERED: OMEP40CA97 PO (14:04)
[2020-11-02] MEDS ORDERED: CARA1TAB6 PO (14:04)
[2020-11-02] MEDS ORDERED: ONDA4TAB6 PO (14:06)
[2020-11-02 14:37] VITALS: BP 136/87
== END 2020-11-02 14:38 | disposition home or self-care (01) ==
LOC: M ED 10:14
DX: K92.2 Gastrointestinal hemorrhage, unspecified (principal); K29.70 Gastritis, unspecified, without bleeding; F12.90 Cannabis use, unspecified, uncomplicated; Z87.19 Personal history of other diseases of the digestive system; K21.9 Gastro-esophageal reflux disease without esophagitis; B19.20 Unspecified viral hepatitis C without hepatic coma; F41.9 Anxiety disorder, unspecified; F32.9 Major depressive disorder, single episode, unspecified; F17.200 Nicotine dependence, unspecified, uncomplicated; Z79.899 Other long term (current) drug therapy
CPT/HCPCS: 74177; 80048; 80076; 80307; 81001; 82550; 82553; 83690; 84439; 84443; 85025; 85610; 85730; 96361; 96374; 96375; 99284; C9113; J2405; Q9967

== ENCOUNTER 2021-05-06 16:09 | Emergency (ER) | payer OTHER ==
[~2021-05-06] VITALS: Ht 185.4 cm; Wt 98.4 kg
[~2021-05-06 16:09] MED LIST changes: +BUPR1FIL3; +CARA1TAB6 PO; +GABA-282 PO; -GABA-843 PO; +OMEP40CA97 PO; +ONDA4TAB6 PO
[2021-05-06 16:10] VITALS: BP 131/71
== END 2021-05-06 21:12 | disposition left against medical advice (07) ==
LOC: M ED 16:09
DX: Z53.21 Procedure and treatment not carried out due to patient leaving prior to being seen by health care provider (principal)

== ENCOUNTER 2021-07-05 14:39 | Emergency (ER) | payer OTHER ==
[~2021-07-05] VITALS: Ht 182.9 cm; Wt 90.9 kg
[~2021-07-05 14:39] MED LIST changes: +OMEP40CA4 PO; -OMEP40CA97 PO
--- NOTE | 2021-07-05 15:18 | REP ---
INDICATION: missed a step, pain and swelling COMPARISON: None. TECHNIQUE: Four views left ankle. FINDINGS: There is no evidence of acute fracture, dislocation, or intrinsic bone disease.There is soft tissue swelling. The ankle mortise is anatomic. IMPRESSION: No fracture or dislocation. <Electronically signed by Edgar Michael > 07/05/21 [id number]
[2021-07-05] MEDS ORDERED: MORPHINE 4 MG/ML 1ML VIAL/SYRINGE (J2270) IV ONE (17:00)
--- NOTE | 2021-07-05 17:43 | REP ---
INDICATION: trauma COMPARISON: None. FINDINGS: There is no fracture or dislocation. Mineralization and joint spaces are normal. There are no calcifications or foreign bodies. IMPRESSION: Negative left tibia-fibula. <Electronically signed by Edgar Martinez > 07/05/21 [id number]
--- NOTE | 2021-07-05 17:45 | REP ---
INDICATION: trauma COMPARISON: None. TECHNIQUE: There are four views. FINDINGS: There is no fracture or dislocation. Mineralization and joint spaces are normal. There are no calcifications or foreign bodies. Next I suspect soft tissue edema over the dorsum. This should be confirmed clinically. IMPRESSION: Negative left foot except for probable soft tissue edema over the dorsum.. <Electronically signed by Edgar Martinez > 07/05/21 [id number]
[2021-07-05] MEDS ORDERED: KETOROLAC 30 MG/ML 1ML VIAL IV ONE (18:10)
[2021-07-05] MEDS ORDERED: ceFAZolin SOD 2 GM in IV 1 EA IV ONE (18:10)
[2021-07-05 18:23] LABS: BASO # 0.1 10^3/uL (0.0-0.2); BASO % 0.6 % (0.0-1.0); EOS # 0.1 10^3/uL (0.0-0.5); EOS % 1.3 % (0.0-3.0); HEMATOCRIT 45.2 % (42.0-52.0); HEMOGLOBIN 15.2 g/dl (13.5-17.5); LYMPH # 2.2 10^3/uL (1.5-5.0); LYMPH % 25.5 % (24.0-44.0); MEAN CORPUSCULAR HEMOGLOBIN 29.2 pg (27.0-33.0); MEAN CORPUSCULAR HGB CONC 33.6 g/dl (32.0-36.5); MEAN CORPUSCULAR VOLUME 86.9 fl (80.0-96.0); MONO # 0.8 10^3/uL (0.0-0.8); MONO % 9.6 % (2.0-8.0); NEUTROPHILS # 5.4 10^3/uL (1.5-8.5); NEUTROPHILS % 62.7 % (36.0-66.0); PLATELET COUNT, AUTOMATED 278 10^3/uL (150-450); WHITE BLOOD COUNT 8.6 10^3/uL (4.0-10.0)
[2021-07-05 18:42] LABS: BLOOD UREA NITROGEN 9 MG/DL (7-18); CALCIUM LEVEL 9.1 MG/DL (8.5-10.1); CARBON DIOXIDE LEVEL 30 MEQ/L (21-32); CHLORIDE LEVEL 105 MEQ/L (98-107); CREATININE FOR GFR 0.72 MG/DL (0.70-1.30); GLOMERULAR FILTRATION RATE > 60.0 (>60); GLUCOSE, FASTING 102 MG/DL (70-100); SODIUM LEVEL 140 MEQ/L (136-145)
[2021-07-05] MEDS ORDERED: CEPH500C PO (19:37)
[2021-07-05 19:42] VITALS: BP 157/85
== END 2021-07-05 20:00 | disposition home or self-care (01) ==
LOC: M ED 14:39
DX: L03.116 Cellulitis of left lower limb (principal); S93.402A Sprain of unspecified ligament of left ankle, initial encounter; W10.8XXA Fall (on) (from) other stairs and steps, initial encounter; Y92.018 Other place in single-family (private) house as the place of occurrence of the external cause; F11.11 Opioid abuse, in remission; Z79.899 Other long term (current) drug therapy; F17.210 Nicotine dependence, cigarettes, uncomplicated
CPT/HCPCS: 73590; 73610; 73630; 80048; 83605; 85025; 87040; 96365; 96375; 99284; J0690; J1885